=== PATIENT | male | born 1945 | race Caucasian/White ===

== ENCOUNTER → 2017-11-22 15:42 | Outpatient (CLI) | payer MEDICARE, SELFPAY ==
[2015-12-24 10:00] VITALS: BMI 32.3
--- NOTE | 2017-11-22 15:46 | RAD_ITS ---
STUDY: X-RAY CHEST REASON FOR EXAM: Male, 72 years old. Cough. TECHNIQUE: PA and lateral views of the chest. COMPARISON: September 05, 2015 FINDINGS: There is a minimally decreased inspiratory effort when compared to prior study. There is no new infiltrate or mass. Chronic interstitial changes are again noted. There is no demonstrated pleural abnormality. Normal size heart. Normal mediastinum and geraldine. Normal visualized pulmonary arteries. There is mild atherosclerotic calcification of the aortic arch with tortuosity. There are diffuse degenerative changes of the visualized thoracic spine. There is degenerative osteoarthritis of the bilateral shoulders. Again seen are surgical changes on the right shoulder suggesting rotator cuff repair. There is no demonstrated abnormality of the visualized soft tissue structures of the upper abdomen. RAD/Chest PA and Lateral IMPRESSION: 1. No acute cardiopulmonary disease or major interval change. 2. Surgical changes of the right shoulder unchanged from prior study. Electronically Signed: Rajiv Urrutia DO at 18:58 EDT Tel [phone], Service support ,
== END ==
PROVIDERS: Family Provider Internal Medicine; PCP Internal Medicine; Visit Provider Nurse Practitioner Gerontology
DX: R05 Cough (principal)
CPT/HCPCS: 71046

== ENCOUNTER → 2017-12-01 07:27 | Outpatient (CLI) | payer MEDICARE, SELFPAY ==
[2015-12-24 10:00] VITALS: BMI 32.3
--- NOTE | 2017-12-02 08:07 | PFTCOMP ---
COMPLETE PULMONARY FUNCTION TEST INTERPRETATION Brief HPI: Patient is a 72 year old male, currently under the care of myself, who presents to [facility] for complete pulmonary function tests secondary to diagnosis of COPD. Respiratory therapist reports good effort and reproducible results. Interpretation: Forced expiration spirometry shows a very severe large airways obstructive ventilatory defect with an FEV1 of 43% predicted. There is a significant bronchodilator response in FVC and FEV1 by ATS criteria. Spirograms are of good quality and plateau slowly, indicating slowly emptying areas of the lungs. The respiratory flow volume loop shows decreased expiratory flow rates at all lung volumes consistent with airway obstruction. Lung volumes by body plethysmography show an elevated total lung capacity at 7.62 L, 117% predicted. FRC and RV are elevated out of proportion. Lung volume measurements are consistent with hyperinflation and air-trapping. Diffusion capacity by carbon monoxide is decreased at 62% predicted. The airway resistance is elevated. Compared to previous pulmonary function tests from 05/14/2016, there has been a significant worsening in FVC and FEV1. Impression: Partially reversible very severe large airways obstructive ventilatory defect resulting in air trapping with hyperinflation that has worsened since the last study. These findings are consistent with COPD/asthma overlap syndrome.
== END ==
PROVIDERS: Family Provider Internal Medicine; PCP Internal Medicine; Visit Provider Internal Medicine Critical Care Medicine
DX: J44.9 Chronic obstructive pulmonary disease, unspecified (principal); M35.1 Other overlap syndromes; J45.909 Unspecified asthma, uncomplicated
CPT/HCPCS: 94060; 94726; 94729

== ENCOUNTER → 2017-12-09 09:34 | Outpatient (CLI) | payer MEDICARE, SELFPAY ==
[2015-12-24 10:00] VITALS: BMI 32.3
--- NOTE | 2017-12-09 09:34 | DT_ITS ---
This patient was seen during an EMR downtime December 06, 2017 - December 13, 2017. This patient may have a combination of paper and electronic documentation or all paper documentation. All documentation is viewable within the e-chart portion of [facility] for each patient visit.
[2017-12-09 10:15] VITALS: PULSE 87; PULSE 88; PULSE 91; PULSE 94; PULSE 95; PULSE 97; PULSE 99; O2SAT 91; O2SAT 92; O2SAT 95
--- NOTE | 2017-12-13 10:18 | CPS ---
Testing completed by Penelope Raymond RRT.
--- NOTE | 2017-12-13 11:59 | WT_ITS ---
PSN 6 Minute Walk Test - 6 Minute Walk Test 6 Minute Walk Test: 6 Minute Walk Test PSN:6-Minute Walk Test Start: 12/13/17 10: 15 Freq: Status: Active Protocol: RESP.6MINW Document 12/09/17 10:15 JAMIE (Rec: 12/13/17 10:18 JAMIE [id number]) 6 Minute Walk Test Date Performed 12/09/17 Time Performed 09:30 Height 5 ft 9 in Weight: 215 lb Weight in Pounds 215.[address]: Ranjith Rubin Assistive device used: None Pre-test Oxygen Delivery Method Room Air Pulse Ox (%) 95 Pulse Rate (60-100 beats/min) 88 Dyspnea Shawn Scale (0-10) 1 Exertion Shawn Scale (6-20) 7 1st minute Oxygen Delivery Method Room Air Pulse Ox (%) 92 Pulse Rate (60-100 beats/min) 91 2nd minute Oxygen Delivery Method Room Air Pulse Ox (%) 92 Pulse Rate (60-100 beats/min) 95 3rd minute Oxygen Delivery Method Room Air Pulse Ox (%) 91 Pulse Rate (60-100 beats/min) 87 4th minute Oxygen Delivery Method Room Air Pulse Ox (%) 95 Pulse Rate (60-100 beats/min) 97 5th minute Oxygen Delivery Method Room Air Pulse Ox (%) 92 Pulse Rate (60-100 beats/min) 99 6th minute Oxygen Delivery Method Room Air Pulse Ox (%) 92 Pulse Rate (60-100 beats/min) 94 Post-test Oxygen Delivery Method Room Air Pulse Ox (%) 95 Pulse Rate (60-100 beats/min) 87 Dyspnea Shawn Scale (0-10) 3 Exertion Shawn Scale (6-20) 14 Full Laps Walked 17 Partial Lap, Number of Tiles Walked 0 Total Distance Walked (ft) 1003 12/13/17 10:18 Cardiopulmonary Services by Camila Clements Testing completed by Penelope Raymond RRT. Initialized on 12/13/17 10:18 - END OF NOTE - Interpretation Interpretation: The patient ambulated 1003 feet over the course of 6 minutes beginning on room air without assistive devices or breaks. Pretesting oxygen saturation was noted to be 95% on room air. With ambulation, the vanessa oxygen saturation was 91%. This represents a significant exertional oxygen desaturation. - Recommendations Recommendations: There is no indication for the use of supplemental oxygen at this time. However , close interval follow-up is recommended given the degree of oxygen desaturation noted during this study.
== END ==
PROVIDERS: Family Provider Internal Medicine; PCP Internal Medicine; Visit Provider Internal Medicine Critical Care Medicine
DX: G47.33 Obstructive sleep apnea (adult) (pediatric) (principal); J44.9 Chronic obstructive pulmonary disease, unspecified
CPT/HCPCS: 94618

== ENCOUNTER → 2018-10-17 13:57 | Outpatient (CLI) | payer MEDICARE, SELFPAY ==
[2015-12-24 10:00] VITALS: BMI 32.3
[2018-06-07 09:13] VITALS: BMI 32.9
--- NOTE | 2018-10-17 14:06 | RAD_ITS ---
STUDY: X-RAY CHEST REASON FOR EXAM: Male, 73 years old. Shortness of breath TECHNIQUE: PA and lateral views of the chest. COMPARISON: Chest x-ray 11/22/2017 FINDINGS: The lungs are clear and expanded. There is no demonstrated pleural abnormality. Normal size heart. Normal mediastinum and geraldine. Normal visualized pulmonary arteries. Normal visualized aortic arch and descending thoracic aorta. Normal visualized thoracic spine. Normal visualized ribs, clavicles, and shoulders. There has been right rotator cuff repair. There is no demonstrated abnormality of the visualized soft tissue structures of the upper abdomen. RAD/Chest PA and Lateral IMPRESSION: Normal x-ray examination of the chest. Electronically Signed: Cash Cotter, at 14:53 EDT Tel , Service support ,
== END ==
PROVIDERS: Family Provider Internal Medicine; PCP Internal Medicine; Referring Provider Nurse Practitioner; Visit Provider Nurse Practitioner
DX: R06.02 Shortness of breath (principal)
CPT/HCPCS: 71046; 83880

== ENCOUNTER → 2018-10-17 14:50 | Outpatient (CLI) | payer MEDICARE, SELFPAY ==
[2015-12-24 10:00] VITALS: BMI 32.3
[2018-06-07 09:13] VITALS: BMI 32.9
[2018-10-17 15:35] LABS: BNP,B-Type NATRIURETIC PEPTIDE 138.9 pg/mL (0-100)
== END ==
PROVIDERS: Family Provider Internal Medicine; PCP Internal Medicine; Referring Provider Nurse Practitioner; Visit Provider Nurse Practitioner
DX: J44.1 Chronic obstructive pulmonary disease with (acute) exacerbation (principal)
CPT/HCPCS: 83880

== ENCOUNTER → 2018-11-25 07:48 | Outpatient (CLI) | payer MEDICARE, SELFPAY ==
[2015-12-24 10:00] VITALS: BMI 32.3
[2018-06-07 09:13] VITALS: BMI 32.9
--- NOTE | 2018-11-25 12:29 | PFT ---
INTRODUCTION: The patient is a 73-year-old male that presents for pulmonary function studies secondary to a diagnosis of COPD. Respiratory therapy reports good patient effort. Bronchodilators were used during testing. INTERPRETATION: Forced expiration spirometry demonstrates the presence of a severe large airways obstructive ventilatory defect. There was a significant response to aerosolized bronchodilators. Spirograms are of good quality and do not plateau indicating slow emptying of the lungs. Body plethysmography was performed and reveals an elevated RV to 169% of predicted, indicative of underlying air trapping. Diffusing capacity by single breath CO is reduced at 57% of predicted. IMPRESSION: Partially reversible severe large airways obstructive ventilatory defect with associated air trapping and symmetric reduction in diffusing capacity.
== END ==
PROVIDERS: Family Provider Internal Medicine; PCP Internal Medicine; Referring Provider Nurse Practitioner Acute Care; Visit Provider Nurse Practitioner Acute Care
DX: J44.9 Chronic obstructive pulmonary disease, unspecified (principal)
CPT/HCPCS: 94060; 94726; 94729

== ENCOUNTER → 2018-11-30 08:03 | Outpatient (CLI) | payer MEDICARE, SELFPAY ==
[2015-12-24 10:00] VITALS: BMI 32.3
[2018-06-07 09:13] VITALS: BMI 32.9
[2018-11-30 09:37] VITALS: PULSE 69; PULSE 72; PULSE 76; PULSE 79; PULSE 81; PULSE 85; PULSE 92; O2SAT 93; O2SAT 94; O2SAT 95; O2SAT 96
--- NOTE | 2018-11-30 11:20 | PCM.PSN.6M ---
PSN 6 Minute Walk Test - 6 Minute Walk Test 6 Minute Walk Test: 6 Minute Walk Test PSN:6-Minute Walk Test Start: 11/30/18 08:33 Freq: Status: Active Protocol: RESP.6MINW Document 11/30/18 09:37 JAMIE (Rec: 11/30/18 09:39 JAMIE [id number]) 6 Minute Walk Test Date Performed 11/30/18 Time Performed 09:00 Height 5 ft 10 in Weight: 103.419 kg Weight in Pounds 228.[address]: Ranjith Rubin Assistive device used: None Pre-test Oxygen Delivery Method Room Air Pulse Ox (%) 95 Pulse Rate (60-100 beats/min) 69 Dyspnea Shawn Scale (0-10) 0 Exertion Shawn Scale (6-20) 6 1st minute Oxygen Delivery Method Room Air Pulse Ox (%) 95 Pulse Rate (60-100 beats/min) 76 2nd minute Oxygen Delivery Method Room Air Pulse Ox (%) 94 Pulse Rate (60-100 beats/min) 79 3rd minute Oxygen Delivery Method Room Air Pulse Ox (%) 94 Pulse Rate (60-100 beats/min) 81 4th minute Oxygen Delivery Method Room Air Pulse Ox (%) 93 Pulse Rate (60-100 beats/min) 85 5th minute Oxygen Delivery Method Room Air Pulse Ox (%) 93 Pulse Rate (60-100 beats/min) 85 6th minute Oxygen Delivery Method Room Air Pulse Ox (%) 93 Pulse Rate (60-100 beats/min) 92 Dyspnea Shawn Scale (0-10) 3 Exertion Shawn Scale (6-20) 12 Reported Symptoms Dizziness Post-test Oxygen Delivery Method Room Air Pulse Ox (%) 96 Pulse Rate (60-100 beats/min) 72 Full Laps Walked 15 Partial Lap, Number of Tiles Walked 31 Total Distance Walked (ft) 916 - Interpretation Interpretation: The patient was able to ambulate 916 feet over the course of 6 minutes on room air with no assistive devices or breaks. The patient did report lightheadedness at the end of ambulation, but no significant desaturation or tachycardia was noted. These findings are consistent with deconditioning. - Recommendations Recommendations: No supplemental oxygen is indicated at this time.
== END ==
PROVIDERS: Family Provider Internal Medicine; PCP Internal Medicine; Referring Provider Nurse Practitioner Acute Care; Visit Provider Nurse Practitioner Acute Care
DX: J44.9 Chronic obstructive pulmonary disease, unspecified (principal)
CPT/HCPCS: 94618

== ENCOUNTER → 2019-01-03 15:33 | Outpatient (CLI) | payer OTHER, SELFPAY ==
[2015-12-24 10:00] VITALS: BMI 32.3
[2019-01-03 15:33] VITALS: BMI 32.9
--- NOTE | 2019-01-03 15:36 | RAD_ITS ---
STUDY: X-RAY - LEFT SHOULDER REASON FOR EXAM: Male, 73 years old. Pain after a fall TECHNIQUE: 4 view(s) of the shoulder. COMPARISON: None. FINDINGS: Normal glenohumeral articulation. Normal acromioclavicular joint. Normal acromion. Normal humeral head and visualized proximal humerus. The soft tissue structures are unremarkable. Normal visualized pulmonary apex. RAD/Shoulder min 2 Views IMPRESSION: Normal x-ray examination of the shoulder. Electronically Signed: Anup Serna MD at 16:10 EDT , Service support ,
--- NOTE | 2019-01-03 15:36 | RAD_ITS ---
STUDY: X-RAY - LEFT KNEE REASON FOR EXAM: Male, 73 years old. Pain after a fall TECHNIQUE: 4 view(s) of the knee. COMPARISON: None. FINDINGS: Normal visualized distal femur. Normal visualized proximal tibia and fibula. Normal proximal tibiofibular articulation. Normal medial femorotibial compartment. Normal lateral femorotibial compartment. Normal patellofemoral articulation. The soft tissue structures are unremarkable. RAD/Knee 4 or More Views IMPRESSION: Normal x-ray examination of the knee. Electronically Signed: Anup Serna MD at 16:10 EDT , Service support ,
== END ==
PROVIDERS: Family Provider Internal Medicine; Referring Provider Physician Assistant Surgical; Visit Provider Physician Assistant Surgical
DX: S80.02XA Contusion of left knee, initial encounter (principal); S40.012A Contusion of left shoulder, initial encounter
CPT/HCPCS: 73030; 73564

== ENCOUNTER → 2019-02-28 17:34 | Outpatient (CLI) | payer OTHER, SELFPAY ==
[2015-12-24 10:00] VITALS: BMI 32.3
[2019-02-17 15:32] VITALS: BMI 32.9
[2019-02-28 11:11] VITALS: BMI 32.9
--- NOTE | 2019-02-28 17:41 | MRI_ITS ---
STUDY: MRI LEFT SHOULDER REASON FOR EXAM: Male, 73 years old. Left shoulder pain status post fall. TECHNIQUE: Standardized fat and water weighted pulse sequences were obtained in all 3 orthogonal planes. COMPARISON: X-ray 01/03/2019. FINDINGS: Full-thickness supraspinatus tendon tear measures approximately 1.5 cm AP by 2.5 cm transversely. Thickening and signal abnormality in the infraspinatus tendon consistent with tendinosis or low-grade partial tear. Complete tear of the subscapularis tendon, with 1.6 cm tendon gap. Normal teres minor tendon. Normal supraspinatus muscle. Normal infraspinatus muscle. Normal subscapularis muscle. Normal teres minor muscle. Mild glenohumeral joint effusion, with moderate fluid in the subscapularis bursa. Mild fluid in the subdeltoid-subacromial bursa, consistent with rotator cuff tear. Long head of the biceps tendon is torn. Normal labrum. Marrow signal shows no fracture, bone contusion, or osteonecrosis. Moderate fluid in the acromioclavicular joint. There is a Type II morphology (curved), with a neutral orientation. There is no subacromial-subdeltoid bursal fluid. Normal visualized coracohumeral and coracoacromial ligaments. MRI/Upper Ext Joint Only(Routine) IMPRESSION: 1. Full-thickness supraspinatus tendon tear. 2. Complete subscapularis tendon tear. 3. Infraspinatus tendinosis and possible low-grade partial tear. 4. Complete long head biceps tendon tear. 5. Joint and bursal effusions. 6. AC joint effusion. Electronically Signed: Brittny Henson MD at 23:25 EDT Tel , Service support ,
== END ==
PROVIDERS: Family Provider Internal Medicine; PCP Internal Medicine; Referring Provider Physician Assistant; Visit Provider Physician Assistant
DX: S40.012A Contusion of left shoulder, initial encounter (principal); S46.912A Strain of unspecified muscle, fascia and tendon at shoulder and upper arm level, left arm, initial encounter
CPT/HCPCS: 73221

== ENCOUNTER 2019-07-19 05:34 | Day surgery (SDC) | payer OTHER, SELFPAY ==
[2015-12-24 10:00] VITALS: BMI 32.3
--- NOTE | 2019-07-06 02:18 | HP_ITS ---
I have re-examined the patient. There are no clinical changes since date of exam. Intake Intake Visit Reasons: shoulder pain Is patient in pain?: Yes Allergies No Known Allergies Allergy (Verified 06/12/19 08:42) Medications Zolpidem Tartrate [Ambien] 10 mg PO QHS 08/07/13 [History Confirmed 07/06/19] Losartan Potassium [Cozaar] 25 mg PO DAILY 09/05/15 [History Confirmed 07/06/19] apixaban 5 mg tablet 5 mg PO BID 07/28/17 [History Confirmed 07/06/19] cholecalciferol (vitamin D3) 50,000 unit capsule 50,000 unit PO QWEEK 07/28/17 [History Confirmed 07/06/19] ipratropium-albuterol 0.5 mg-3 mg(2.5 mg base)/3 mL nebulization soln 3 ml INHALATION Q4H PRN PRN #180 ml 11/19/17 [Rx Confirmed 07/06/19] albuterol sulfate 90 mcg/actuation aerosol inhaler 2 puff INHALATION Q6H PRN PRN #18 g 12/20/18 [Rx Confirmed 07/06/19] budesonide-formoterol HFA 160 mcg-4.5 mcg/actuation aerosol inhaler 2 puff INHALATION BID #1 ea 12/20/18 [Rx Confirmed 07/06/19] levalbuterol tartrate 45 mcg/actuation aerosol inhaler 2 inh INHALATION Q6H #15 g 12/20/18 [Rx Confirmed 07/06/19] diltiazem HCl 240 mg capsule,extended release 24 hr 240 mg PO DAILY 03/09/19 [History Confirmed 07/06/19] flecainide 100 mg tablet PO #60 tab 03/09/19 [History Confirmed 07/06/19] [facility] Social History (Updated 07/06/19 @ 14:27 by Isabel Bello DO) Smoking Status: Former smoker quit date: 07/05/92 Tobacco: How many years used: 20 alcohol intake: current alcohol intake frequency: holidays/special occasions only substance use type: does not use HPI shoulder pain: Surgical H&P: Yes Details: Parts of this documentation were recorded by a scribe, this documentation accurately reflects the service provided and the decisions made by me, Isabel Bello, DO 07/06/19 [id number]. TAMMI KINNEY is a 74 year old M here today for [facility] F/U on left shoulder. He has most his pain at night. He has tried light duty but was unable to preform this d/t the pain. Patient is having pain over his anterior and posterior shoulder. He has had his MRI and we have the C-9 approval for the surgery of his left shoulder. Denies numbness, tingling or other associated symptoms. Patient has the approval for left shoulder arthroscopic rotator cuff repair and biceps tenodesis. ROS Musc Reports joint pain, Reports joint swelling, Reports limited joint movement, Denies numbness, Reports radiating pain into limb, Reports stiffness, Denies tingling Skin/Breast Denies redness, Denies lesions, Denies itching, Denies rash, Denies skin swelling Neuro No numbness, No tingling Ortho Exam Left Shoulder Testing: Yes Hawkin's, Yes Drop Arm, Yes empty can No rales rhonchi wheezing, no abdominal pain, no audible bruits Assessment & Plan Problems 1. Tear of left supraspinatus tendon M75.100 2. Full thickness tear of left subscapularis tendon S46.812A 3. Tear of distal tendon of biceps S46.219A Plan Reviewed the pre-operative plans with the patient. Risks and benefits of the procedure were fully explained, including but not limited to infection, neurovascular injury, continued pain, arthritis, stiffness, need for further surgery, re-injury, DVT, PE, general risks of anesthesia, and loss of limb or life. The patient understands all the risks and does wish to proceed with written consent. Reviewed post op restrictions and sling use. Will request PT today for post op rehab. 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 Follow up post op or sooner if pain, swelling, numbness or associated symptoms, or concerns develop. All questions answered. Patient in agreement of plan. Coding Level of Care Code Off vis,est,level 4 Diagnoses Tear of left supraspinatus tendon M75.100 ??Laterality: left Full thickness tear of left subscapularis tendon S46.812A Tear of distal tendon of biceps S46.219A 07/06/19 3929 <Electronically signed by Isabel bartlettkatiana DO> Date _ Isabel eBllo DO
[2019-07-06 13:21] VITALS: BMI 33.5
--- NOTE | 2019-07-17 11:21 | EKG12_ITS ---
Test Reason : PREOP Blood Pressure : / mmHG Vent. Rate : 074 BPM Atrial Rate : 074 BPM P-R Int : 302 ms QRS Dur : 116 ms QT Int : 426 ms P-R-T Axes : 082 006 061 degrees QTc Int : 472 ms Sinus rhythm with 1st degree A-V block Otherwise normal ECG Confirmed by PAYAL JJ, SUHAS ([id number]), primer expeditor and drier JEN WITT ([id number]) on 07/18/2019 10:18:07 AM Referred By: Isabel Bello Confirmed By:SUHAS MOE MD
[2019-07-17 12:42] LABS: Hematocrit 43.1 % (40-54); Hemoglobin 14.2 g/dL (13.0-16.5); Mean Corp Hgb Conc 32.9 g/dL (32-36); Mean Corpuscular Hgb 30.9 pg (27.0-32.0); Mean Corpuscular Volume 93.7 fL (80-94); Mean Platelet Vol. 9.3 fl (6.2-12.0); Platelet Count 283 K/mm3 (150-450); RBC Distribution Width CV 13.4 % (11.6-14.6); RBC Distribution Width SD 45.8 fl (35.1-43.9); White Blood Count 8.7 K/mm3 (4.4-11.0)
[2019-07-17 13:05] LABS: Anion Gap 3 (5-15); BUN 14 mg/dL (7-18); BUN/Creat Ratio 14.9 RATIO (10-20); Chloride 105 mmol/L (98-107); Creatinine, Serum 0.94 mg/dL (0.70-1.30); EST Glomerular Filtration Rate 83 mL/min (>60); Est Glom Filt Rate - Afr Amer 101 mL/min (>60); Glucose 65 mg/dL (74-106); Potassium 3.7 mmol/L (3.5-5.1); Sodium Level 139 mmol/L (136-145)
[2019-07-19] VITALS (7 sets, daily range): BP systolic 109–151; BP diastolic 66–89; PULSE 61–94; RESP 14–18; TEMP 36.5–37; O2SAT 92–97; BMI 32.3
[2019-07-19] MEDS: Lactated Ringers 1,000 ML 100 ML IV (06:06)
[2019-07-19] MEDS: Epinephrine (1 mg/ml) 1 MG/ML VIAL (06:53)
[2019-07-19] MEDS: Cefazolin 2 GM in 0.9% Normal Saline 100 ML IV (07:26)
--- NOTE | 2019-07-19 07:42 | PCM.DC.ORTHO ---
Discharge Diet: No Restrictions - remove dressings in 5 days and apply bandaids to incision sites, sling at all times, call with concerns, follow up in 10-14 days, may move elbow and hand/wrist but DO NOT MOVE SHOULDER- sling at all times unless showering Discharge Activity: May Not Drive May shower in (days): 1 Ice area for (Minutes): 20 - Every hour while awake. Weight Bearing Status: Weight bearing as tolerated Keep extremity elevated above heart level: Operative Extremity Call your doctor if your incision/area has: Continuous Slow Oozing, Sudden Increased Bleeding, Increased Pain/ Swelling, Increased Redness, Foul Smelling Discharge Call your doctor if you observe: Fever of 101 or Higher, Coldness, Increased Pain, Numbness or Tingling, Change in Color, Calf discomfort Allergies/Adverse Reactions: Allergies No Known Allergies Allergy (Verified 07/19/19 05:53) Medications to take at Discharge Losartan Potassium [Cozaar] 25 mg PO DAILY 09/05/15 apixaban 5 mg tablet 5 mg PO BID 07/28/17 cholecalciferol (vitamin D3) 1,250 mcg (50,000 unit) capsule 50,000 unit PO QWEEK 07/28/17 ipratropium 0.5 mg-albuterol 3 mg (2.5 mg base)/3 mL nebulization soln 3 ml INHALATION Q4H PRN PRN #180 ml 11/19/17 albuterol sulfate 90 mcg/actuation aerosol inhaler 2 puff INHALATION Q6H PRN PRN #18 g 12/20/18 budesonide-formoterol HFA 160 mcg-4.5 mcg/actuation aerosol inhaler 2 puff INHALATION BID #1 ea 12/20/18 flecainide 100 mg tablet 100 mg PO DAILY #60 tab 03/09/19 Diltiazem HCl [Cartia Xt] 240 mg PO DAILY 07/14/19 Duloxetine Hcl [Cymbalta] 60 mg PO DAILY 07/14/19 Levalbuterol Tartrate [Levalbuterol Tartrate Hfa] 2 inh INHALATION Q6H PRN 07/14/19 Rosuvastatin Calcium [Crestor] 20 mg PO QHS 07/14/19 Oxycodone HCl/Acetaminophen [Percocet 5/325] 1 - 2 tab PO Q6H PRN PRN 5 Days #28 tab 01/15/20 Zolpidem Tartrate [Ambien (Generic)] 5 mg PO QHS PRN PRN #14 tab 07/19/19 The following prescriptions were given: Zolpidem Tartrate [Ambien (Generic)] 5 mg PO QHS PRN PRN #14 tab PRN Reason: Insomnia Transmission Status: Received by [facility] Oxycodone HCl/Acetaminophen [Percocet 5/325] 1 - 2 tab PO Q6H PRN PRN 5 Days #28 tab PRN Reason: Pain Transmission Status: Received by [facility] Orders to be completed after discharge: 12 Lead EKG [[facility]] Time Frame: 07/14/19, Facility: [facility], Location: Cardiovascular Services Primary Care Physician: Ana Barrera DO [Primary Care Provider] - Test Results: Test results from this visit will be discussed in further detail at your follow-up appointment, if applicable. Please Follow Up With: Isabel Bello DO - [phone]
--- NOTE | 2019-07-19 07:43 | OP.PCM_ITS ---
Report of Operation Date of Procedure: 07/19/19 Pre-Operative Diagnosis: left shoulder rotator cuff tear, impingment syndrome, biceps tendon tear Post-Operative Diagnosis: same Surgery/Procedure Performed:: sals, massive rotator cuff repair, subacromial decompression/acromioplasty catering attendant: Marv Mays Type of Anesthesia:: General Anesthesiologist: Noe Jefferson Estimated Blood Loss (mL): min Fluids Replaced: 1000ml lr Description of Procedure: Preop note Patient is a 74-year-old male with left shoulder injury at work. Patient failed conservative treatment MRI confirms rotator cuff tear biceps tear and impingement syndrome. Risk benefits and alternatives surgery discussed with patient. Risk including but not limited to blood loss, blood clot, infection, neurovascular, failure procedure, loss of life and loss of limb. Patient is aware would like proceed with left shoulder arthroscopy repair as indicated. Operative note Patient seen and examined preop appointment. Left shoulder was marked. Patient brought to the operating room placed supine on the operating table. Signed, anesthesia, antibiotics were administered. Left arm was prepped and draped in usual sterile fashion after beachchair positioning was initiated. Please note the long-term through beachchair position we did recheck his blood pressure which was stable throughout. All bony prominences were well-padded SCDs placed on his bilateral lower extremities. We then marked out our in the left arm and then prepped and draped we marked out our incisions for our portal placement. We insufflated the joint from the posterior aspect had good return. Timeout was performed. We use an 11 blade to create a posterior portal. Began our diagnostic arthroscopy. He had grade 3 change of his humeral head is glenoid socket and cartilage is intact. His biceps tendon was torn off of its insertion on the labrum and there was some fraying we then created an anterior portal under direct visualization. We then resected back the area of the biceps and that had torn off. As it was is there is still a stump remaining and some irritation surrounding. Noted that there was a massive rotator cuff tear and was retracted posteriorly and supraspinatus and infraspinatus just medial to its insertion on the its footprint. We then created a into the subacromial space and created a lateral portal under direct visualization. There was extensive bursitis throughout which was resected with a combination of his shaver and an ablator. We then were able to mobilize the rotator cuff back to its footprint. We placed a traction stitch initially we did use an elevator to resect back any adhesions. We had been good mobility the tear moved from a posterior to anterior we then placed two 5.5 bio composite Arthrex anchors into the medial footprint after creating a bed for the anchors use a combination of an ablator and a bur. We then sequentially placed our sutures from posterior to anterior after placing all of her sutures we had noted good coverage at that point. We then placed to lateral row as due to patient's age and tissue strength we will give him his best chance for decreasing the tension through the 10 suture itself. To the tendon. Then created a lateral row using 2 swivel locks. I then irrigated the shoulder with copious nonsterile saline. Portals were closed with interrupted 4-0 nylon stitches sterile dressings were applied and a sling was applied to left upper extremity extremity. Patient taught procedure well no complication transferred recovery room in stable condition Postoperative note Pharmacy has prescription Call increased pain numbness tingling or issues arise We will give pictures to family in 2 weeks May remove dressings in 4 days and apply Band-Aids and get incision wet at that time This note was generated with [employer] dictation software. It may contain incorrect words, spelling, and punctuation that were not noted in checking the note before signing.
[2019-07-19] MEDS: Bupiv/Epi 0.25% 30 ML Vial (10:00)
[2019-07-19] MEDS: Mupirocin Ointment 22gm Tube 1 APPLIC (10:11)
[2019-07-19] MEDS: HYDROcodone Bitartrate/Apap 5/325 Tablet PO (11:32)
== END 2019-07-19 13:36 | disposition home or self-care (01) ==
LOC: SDC 05:36 → AC 05:37
PROVIDERS: Anesthesiology; Family Provider Internal Medicine; PCP Internal Medicine; Referring Provider Orthopaedic Surgery; Visit Provider Orthopaedic Surgery
PROC: (CPT 29827; principal; 2019-07-19 07:10)
DX: M75.102 Unspecified rotator cuff tear or rupture of left shoulder, not specified as traumatic (principal); S46.812A Strain of other muscles, fascia and tendons at shoulder and upper arm level, left arm, initial encounter; S46.219A Strain of muscle, fascia and tendon of other parts of biceps, unspecified arm, initial encounter; X58.XXXA Exposure to other specified factors, initial encounter; Y93.9 Activity, unspecified; Y92.89 Other specified places as the place of occurrence of the external cause; Y99.0 Civilian activity done for income or pay; I10 Essential (primary) hypertension; I48.91 Unspecified atrial fibrillation; J44.9 Chronic obstructive pulmonary disease, unspecified; E78.00 Pure hypercholesterolemia, unspecified; F32.9 Major depressive disorder, single episode, unspecified; Z79.01 Long term (current) use of anticoagulants; Z87.891 Personal history of nicotine dependence; Z86.711 Personal history of pulmonary embolism
CPT/HCPCS: 01630; 29826; 29827; 36415; 80048; 85027; 93005; J7120; C1713; J2405

== ENCOUNTER → 2019-11-17 06:35 | Outpatient (CLI) | payer MEDICARE, SELFPAY ==
[2015-12-24 10:00] VITALS: BMI 32.3
[2019-06-12 07:48] VITALS: BMI 33.5
[2019-10-06 08:52] VITALS: BMI 32.3
--- NOTE | 2019-11-17 13:15 | PFTCOMP ---
COMPLETE PULMONARY FUNCTION TEST INTERPRETATION Brief HPI: Patient is a 74 year old male, currently under the care of myself, who presents to [facility] for complete pulmonary function tests secondary to diagnosis of COPD. Respiratory therapist reports good effort and reproducible results. Interpretation: Forced expiration spirometry shows a moderately severe large airways obstructive ventilatory defect with an FEV1 of 50% predicted. There is a significant bronchodilator response in FVC and FEV1 by strict ATS criteria. Spirograms are of good quality and plateau slowly, indicating slowly emptying areas of the lungs. The respiratory flow volume loop shows decreased expiratory flow rates at all lung volumes consistent with airway obstruction. Lung volumes by body plethysmography show an elevated total lung capacity at 7.48 L, 116% predicted. FRC and RV are elevated out of proportion. Lung volume measurements are consistent with hyperinflation and air-trapping. Diffusion capacity by carbon monoxide is decreased at 68% predicted. The airway resistance is elevated. Compared to previous pulmonary function tests from 11/25/2018, there is been a significant improvement in DLCO by 14%. Impression: Partially reversible moderately severe large airways obstructive ventilatory defect with a symmetric reduction diffusing capacity, but some improvement compared to previous testing.
== END ==
PROVIDERS: Family Provider Internal Medicine; PCP Internal Medicine; Referring Provider Nurse Practitioner Acute Care; Visit Provider Nurse Practitioner Acute Care
DX: J44.9 Chronic obstructive pulmonary disease, unspecified (principal); Z98.890 Other specified postprocedural states
CPT/HCPCS: 94060; 94726; 94729; 97110

== ENCOUNTER 2020-01-19 12:00 | Outpatient (RCR) | payer OTHER, MEDICARE, SELFPAY ==
[2015-12-24 10:00] VITALS: BMI 32.3
[2019-08-03 10:43] VITALS: BMI 32.3
--- NOTE | 2019-08-18 13:59 | HP.PTEVAL_ITS ---
Patient's Visit Information TAMMI KINNEY is a 74 year old M referred to Physical Therapy by Dr. Isabel Bello DO with a diagnosis of S/P RIGHT SHOULDER RTC. Date of Evaluation: 08/17/19 Physical Therapist: Bry Alvarez PT, Cert MDT, OCS - Visit Plan Frequency: 3x /Week Duration: 6 Weeks Plan: S/P RTC REPAIR MASSIVE REPAIR ON 07/19/19 S/P 5WKS ON 08/23/09. SEE GUIDELINES FOR RIGHT RTC REPAIR FOR PROGRESSION. PT INTERVENTION PROM INTIALLY PER ORDER ,PROGRESS WITH PHASES PER GUIDELINES. MANUAL THERAPY,CP ,ESTIM - Subjective Findings: This 74 y/o male presenst to physicl therapy with S/P Right RTC repair ON 07/19/19 with ultrasling done by Moises at [facility] . Patient right shoulder at work fell tripped on gas hose landed on right shoulder. [facility] went to [facility] had [facility] -. Patient went to work light duty still had alot pain. [facility] ,patient then had MRI showed full thickness ter supraspinatous tendon,complete tear subscapularis,complete long head biceps tendon tear.Patient denies parathesia/tingling. Patient symptoms affects sleeping. Patient surgery affects ADL'S,self hygine and function. Patient symptoms affects QOL. Patient unbale to RTW. Patient RTD 08/31. SOCIAL: . 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 PALAPTION: tender global. NEURO: intact. PROM: supine shoulder flexion 70 degress ,abduction 60 degrees ,ER 10- pain muscle guarding ,IR able to touch abdominals,elbow- wrist WFL. CAPSULAR RESTRICTION: mod tight - Goals Goal 1:: Independant with HEP progression with guidelines. Goal Time Frame: 12-16 Weeks Goal 2:: Decrease shoulder pain by 75% or > to improve function. Goal Time Frame: 12-16 Weeks Goal 3:: Patient increase PROM shoulder flexion 145 degrees ,abdunction in scapation,ER 80 degrees,IR behind back L1 to improve function Goal Time Frame: 6-8 Weeks Goal 4:: Patient increase AROM shoulder flexion 140 degrees,abd 135 in scapation ER 80 degrees to improve function with ADL's and housework tasks [place] Goal Time Frame: 12-16 Weeks Goal 5:: Patient increase strength RTC 4-/5 and deltouid 3+/5 to improve function with ADLS' and houseworks tasks Goal Time Frame: 12-16 Weeks Goal 6:: Patient to improve quick shoulder dash by 10-15 ponts or > to improve QOL. Goal Time Frame: 12-16 Weeks - Rehabilitation Potential Physical Therapy Diagnosis: Patient has right shoulder RTC repair on 07/19/19 due to massive tear with poor ROM,pain,decrease strength impairs ADL's,self hygine and function thus benifit froms Skilled PT Rehabilitation Potential: Good - Anticipated Interventions Patient/Client Instruction: Educate patient on: Condition, Plan of Care For the Purpose of:: To decrease pain, To increase ROM, To improve muscle performance and motor function, To improve ability to perform ADL's, To increase tolerance to activity/condition/position, To improve performance and independence with ADL's, To improve ability of physical actions for home/community/work/leisure, To improve health of tissue, To decrease soft tissue restriction, To increase flexibility/ROM, To assume or resume ADL's, To improve ability to perform tasks related to life management, To improve tolerance to ADL's Therapeutic Exercise to Include: Strength training, Postural training, Flexibilty training, Passive ROM, Active ROM Comment: RTC/SCAPULAR ,. INTAILLY PROM ,PROGRESS PER GUIDELINES For the Purpose of:: To decrease pain, To increase ROM, To improve muscle performance and motor function, To improve ability to perform ADL's, To increase tolerance to activity/condition/position, To improve performance and independence with ADL's, To improve ability of physical actions for home/community/work/leisure, To improve health of tissue, To decrease soft tissue restriction, To increase flexibility/ROM Manual Therapy Techniques to Include: Mobilization, Passive ROM Comment: Peter OSSILATIONS,GR1-3 For the Purpose of:: To increase ROM, To improve nutrient delivery to tissue, To increase oxygenation perfusion, To improve health of tissue, To decrease soft tissue restriction, To increase flexibility/ROM TENS: Yes IF ES: Yes Other electric stimulation: Yes Cryotherapy (ice pack, ice massage): Yes Thermo therapy (hot pack): Yes For the Purpose of:: To decrease pain, To increase ROM, To improve health of tissue, To decrease soft tissue restriction Thank you for the opportunity to evaluate your patient. For Medicare and Medicare HMO plans, please review the plan of care and approve it. It will need to be FAXED BACK to us at [phone] for Medicare purposes. For Medicare only, by signing this I certify the plan of care. Please let me know if there are questions or concerns regarding this plan of care. Physician Signature: Date:
--- NOTE | 2019-12-19 13:58 | HP.PTREVAL ---
Dr. Isabel Bello, DO, It has been my pleasure to treat TAMMI KINNEY over the last 30 visits for S/P Left SHOULDER RTC. Please see the progress note below for an update on the physical therapy plan of care! Subjective: Patient seen DR shona chopra recommended PT . Sleeping good. Denies parathesia/tingling. Pain with certain motion to side and back increase 2-/3 10 worse. Objective/Function: POSTURE: mild foward posture. AROM: shoulder flexion 140 degrees,140 abduction ER 90 degrees. PROM: shoulder flexion 160 degrees,abduction 160. MMT: infraspinatous 4-/5,subscapularis 4/5,supraspiantous 4-/5 pain,deltoid 4-/5 anterior,lateral 3+/5 ,poor scapular strength Plan Plan: CONT WITH POC 2-3X FOR 4-6WEEKS -12 VISITS. Provide Phase III next session. S/P RTC REPAIR MASSIVE REPAIR ON 07/19/19. PT INTERVENTION PROM, PROGRESS SLOWLY PER GUIDELINES STRENGTHENING RTC/POSTURAL EX'S,CP ,ESTIM Goals Goal 1:: Independant with HEP progression with guidelines. Goal Time Frame: 12-16 Weeks Goal 2:: Decrease shoulder pain by 75% or > to improve function. Goal Time Frame: 12-16 Weeks Goal 3:: Patient increase PROM shoulder flexion 145 degrees ,abdunction in scapation,ER 80 degrees,IR behind back L1 to improve function Goal Time Frame: 6-8 Weeks Goal 4:: Patient increase AROM shoulder flexion 140 degrees,abd 135 in scapation ER 80 degrees to improve function with ADL's and housework tasks [place] Goal Time Frame: 12-16 Weeks Goal 5:: Patient increase strength RTC 4-/5 and deltouid 3+/5 to improve function with ADLS' and houseworks tasks Goal Time Frame: 12-16 Weeks Goal 6:: Patient to improve quick shoulder dash by 10-15 ponts or > to improve QOL. Goal Time Frame: 12-16 Weeks Anticipated Interventions Patient/Client Instruction: Educate patient on: Condition, Plan of Care For the Purpose of:: To decrease pain, To increase ROM, To improve muscle performance and motor function, To improve ability to perform ADL's, To increase tolerance to activity/condition/position, To improve performance and independence with ADL's, To improve ability of physical actions for home/community/work/leisure, To improve health of tissue, To decrease soft tissue restriction, To increase flexibility/ROM, To assume or resume ADL's, To improve ability to perform tasks related to life management, To improve tolerance to ADL's Therapeutic Exercise to Include: Strength training, Postural training, Flexibilty training, Passive ROM, Active ROM Comment: RTC/SCAPULAR ,. INTAILLY PROM ,PROGRESS PER GUIDELINES For the Purpose of:: To decrease pain, To increase ROM, To improve muscle performance and motor function, To improve ability to perform ADL's, To increase tolerance to activity/condition/position, To improve performance and independence with ADL's, To improve ability of physical actions for home/community/work/leisure, To improve health of tissue, To decrease soft tissue restriction, To increase flexibility/ROM Manual Therapy Techniques to Include: Mobilization, Passive ROM Comment: Peter OSSILATIONS,GR1-3 For the Purpose of:: To increase ROM, To improve nutrient delivery to tissue, To increase oxygenation perfusion, To improve health of tissue, To decrease soft tissue restriction, To increase flexibility/ROM TENS: Yes IF ES: Yes Other electric stimulation: Yes Cryotherapy (ice pack, ice massage): Yes Thermo therapy (hot pack): Yes For the Purpose of:: To decrease pain, To increase ROM, To improve health of tissue, To decrease soft tissue restriction Please do not hesitate to contact me at [phone] by phone or if you have questions or concerns regarding this new plan of care! Sincerely, Bry Alvarez, PT, Cert MDT, OCS
== END 2020-01-19 17:00 | disposition home or self-care (01) ==
LOC: PT 12:00
PROVIDERS: PCP Internal Medicine; Referring Provider Orthopaedic Surgery; Visit Provider Orthopaedic Surgery
DX: Z98.890 Other specified postprocedural states (principal)
CPT/HCPCS: 97014; 97035; 97110; 97140; 97162; 97530; G0283

== ENCOUNTER 2020-03-29 08:50 | Outpatient (RCR) | payer OTHER, SELFPAY ==
[2015-12-24 10:00] VITALS: BMI 32.3
[2020-02-29 08:17] VITALS: BMI 32.7
[2020-03-20 13:53] VITALS: BMI 32.7
--- NOTE | 2020-04-04 08:09 | HP.OTFCE_ITS ---
Floor (Occasional 1-33% of Day): 35# Floor (Frequent 34-66% of Day): 18# Floor (Constant 67-100% of Day): 7# Floor PDL: Light-Medium Knee (Occasional 1-33% of Day): 35# Knee (Frequent 34-66% of Day): 18# Knee (Constant 67-100% of Day): 7# Knee PDL: Light-Medium Waist (Occasional 1-33% of Day): 30# Waist (Frequent 34-66% of Day): 15# Waist (Constant 67-100% of Day): NA Waist PDL: Light-Medium Shoulder (Occasional 1-33% of Day): 15# Shoulder (Frequent 34-66% of Day): 8# Shoulder (Constant 67-100% of Day): NA Shoulder PDL: Sedentary-Light Overhead (Occasional 1-33% of Day): NA Overhead (Frequent 34-66% of Day): NA Overhead (Constant 67-100% of Day): NA Overhead PDL: No Ability Bending: Occasional Ability (1-33% of day) Comments: with use of external support for balance Squatting: Occasional Ability (1-33% of day) Comments: with use of external support for balance Kneeling: Occasional Ability (1-33% of day) Comments: low occasional ability Reaching out: Occasional Ability (1-33% of day) Reaching up: Occasional Ability (1-33% of day) Sitting: Frequent Ability (34-66% of day) Walking: Occasional Ability (1-33% of day) Standing: Occasional Ability (1-33% of day) Duration Sedentary Sedentary Light Light Light Medium Medium Medium Heavy Very Heavy Heavy Occasional (0-33% of day) Frequent (34-66% of day) Constant (67-100% of day) 10 # Negligible Negligible 15 # 8 # Negligible 20 # 10# Negli. 35 # 18 # 7 # 50 # 25 # 10 # 75 # 100 # >100 # 38 # 50 # >50 # 15 # 20 # >20 # Height: 1.78 m Weight:: 100.244 kg Hand Dominance: Right Medical History Including Restrictions: pt states he was in good health until he had a fall while at work. 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 After the fall he went to the Dr. 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 [facility] assessment, pt request the MRI and a large tear from MRI. pt states this was about 4 months after his fall. Pt had sx then had therapy and pt states he recovered about 80%- 70% and returned to work but was unable to continue his job and currently pt is off work. Pt states he has concerns with how his left shoulder is feeling as he previous right shoulder rotator cuff repair he had made what he felt was a full recovery. pt went back to work and has had an increase in pain. pt states pain is controlled by over the counter. Diagnoses: COPD dx 69 years old controlled with medication. emphysema dx at age 69 controlled with medication and breathing tx. A fib dx at age 62 controlled with medication. Fibromyalgia dx at age 62. left rotator cuff tear with repair. right rotator cuff tear with repair 15 years ago. hx of PE 9 years ago Symptoms: left shoulder pain. tingling down left arm Pain: pt states left shoulder pain throbbing at a - 6/10 without over the counter pain medication. pt states he does use ice at night to decrease pain. Resting heart rate 68 Work History: Pt works for [employer] states he has been working there for 3 years. 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 Pt states he was injured at work and when he returned, he was placed in an assembling bottles position. pt states he returned to work to work 4 days after this year. 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 pt states he is having to carry the boxes. pt states he works 8 hours a day. pt states with the job requirements he is struggling with pain in about an hour and a half into this job. pt states he does not have a job description with him. States he has no lift requirement that he is aware of. pt states he was working 40hours a week and could not perform his job due to pain. pt states pain limits him with work tasks. 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 Behavioral: Pt was cooperative during the assessment. ADLS: Pt lives in a ranch home one entry step, no rails to enter home- pt does have basement but does not go to basement- Pt states he has a [id number] pt states he stands for shower- pt states he has a long handled brush- pt is MOD I with bathing, IND with dressing, pt states he drives ind to this session. does cook, cleaning, laundry. pt states he does most tasks right-handed pt states he uses his left UE about 80% of the time. yard work pt hired this out for last 6 years. Physical Examination: pt becomes SOB with increase activity ROM: pt has had a ring and MF finger tip amputation about 25 years ago. left shoulder flex 135 ext 50. left shoulder abduction 120 Strength: pt demo with left UE shoulder MMT at 3-/5 pain. 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 Sensation: Harper-bharti monofilament sensory testing. right all digits 3.84 interpretation diminished protective sensation. left digits 3.84 interpretation diminished protective sensation Fine Motor: 9 hole peg test. right 27.6 = 25% better than males in his age group. left 27.89 = 50% better than males in his age group Balance: One noted LOB but pt caught self with table top. Then used table top for support with bending. Bending: pt demo the ability to bend forward three times, ten times pt did get d alyssa and have a slight LOB forward but used external support to catch himself and ten times rapidly with external support. heart rate 82 pain in left shoulder 4/10. pt can bend forward on an occasional ability Squatting: pt demo the ability to squat three times, ten times pt demo SOB after needed 3 min to catch breath. SP02 dropped to 89 and then returned to 96. Pt can squat on an occasional ability. Kneeling: Pt demo the ability to kneel three times, and 4 times. pt demo SOB SpO2 dropped to 89 and heart rate at 91. pt can kneel on a low occasional ability Reaching out/up: pt demo the ability to reach up in a functional ROM three times, 8 times - pt stopped due to pain. report pain increase from 4-6/10 with this task. Pts SpO2 dropped to 86 and recovered to 97. Heart rate at 75. pt can reach out on an occasional ability. Walking: pt ambulated 6 min SpO2 dropped from 99 to 89 with ambulating an antalgic gait pattern pt SOB. Pt can ambulate on an occasional ability. Standing: pt demo the ability to stand for 4 min with shifting body weight and lifting legs. pt can stand on an occasional ability. Sitting: pt demo the ability to sit for 45 min with moving left UE around. pt can sit on a frequent ability. Climbing Stairs: pt demo the ability to ascend and descend 10 steps with use of handrail on right with good ability. Floor Lift: pt lifted 35# maximally from floor level with good lifting mechanics. Knee Lift: pt lifted 35# maximally from this level with good lifting mechanics. Waist Lift: pt lifted 30# maximally from this level with good lifting mechanics. Shoulder Lift: pt lifted 55# maximally from this level with good lifting mechanics. Overhead Lift: unable Carrying: pt demo the ability to carry 20# for 40 feet.
--- NOTE | 2020-04-08 14:29 | HP.OT.NRP ---
TAMMI KINNEY was seen in my office for initial evaluation on . The following Plan of Care was established for this patient: pt was seen for FCE only This patient was last seen in our office . Pertinent comments regarding their Occupational therapy will appear below: At this point I will be discontinuing this patient from occupational therapy. I would be happy to see this patient again in the future if found appropriate by the physician. Thank you! Aye Fermin, OTR/L, CHT
== END 2020-03-29 17:00 | disposition home or self-care (01) ==
LOC: OT 08:50
PROVIDERS: PCP Internal Medicine; Referring Provider Orthopaedic Surgery; Visit Provider Orthopaedic Surgery
DX: S46.012D Strain of muscle(s) and tendon(s) of the rotator cuff of left shoulder, subsequent encounter (principal); S46.112D Strain of muscle, fascia and tendon of long head of biceps, left arm, subsequent encounter
CPT/HCPCS: 97750

== ENCOUNTER 2021-01-13 17:06 | Emergency (ER) | payer MEDICARE, SELFPAY ==
[2015-12-24 10:00] VITALS: BMI 32.3
[2020-12-16 06:28] VITALS: BMI 32.7
[2021-01-13 17:07] VITALS: BP 140/77; PULSE 72; RESP 16; TEMP 36.6; O2SAT 96; BMI 34.2
--- NOTE | 2021-01-13 17:41 | EDS_ITS ---
HPI History of Present Illness HPI Narrative: Patient presents with left knee injury that occurred today. Patient states he stepped off of a curb. Patient states he felt a pop in his left knee. Patient states he was having difficulty ambulating after the injury. Patient describes his pain as aching but sharp at times. Patient states it is worse with certain movements. Patient denies any paresthesias. Patient admits to some swelling over the left knee. Patient states the pain radiates to his left thigh. Patient denies any head injury or loss of consciousness. Patient denies any other injuries. Chief Complaint: Lower Extremity Injury Informant: patient Onset/Context/Timing Onset: Today Context: Sudden Onset Timing: Continuous Quality of Pain: Sharp and Aching Location: Left knee Worsened by: Movement Relieved by: Nothing Associated Symptoms Associated Symptoms: Negative for Parasthesia [facility] Medical History (Updated 01/13/21 @ 18:[address] Noe Clarke, DO) Asbestos exposure COPD DDD (degenerative disc disease) Fibromyalgia Hiatal hernia History of tobacco abuse Hyperglycemia Hypertension Insomnia Obesity ASTON (obstructive sleep apnea) Osteoarthritis Paroxysmal atrial fibrillation Pulmonary embolism Restless leg syndrome Stage 3 severe COPD by GOLD classification Ventral hernia Home Medications losartan 25 mg PO DAILY 09/05/15 [History Last Taken Unknown] cholecalciferol (vitamin D3) 1,250 mcg (50,000 unit) capsule 50,000 unit PO QWEEK 07/28/17 [History Last Taken Unknown] flecainide 100 mg tablet 100 mg PO DAILY #60 tab 03/09/19 [History Last Taken 07/19/19 05:00] levalbuterol tartrate 2 inh INHALATION Q6H PRN 07/14/19 [History Last Taken Unknown] rosuvastatin 20 mg PO QHS 07/14/19 [History Last Taken Unknown] apixaban 5 mg tablet 5 mg PO BID 02/29/20 [History Last Taken Unknown] oxygen-air delivery systems #1 02/29/20 [History Last Taken Unknown] albuterol sulfate 90 mcg/actuation aerosol inhaler 2 puff INHALATION Q6H PRN PRN #18 g 06/03/20 [Rx Last Taken Unknown] ipratropium 0.5 mg-albuterol 3 mg (2.5 mg base)/3 mL nebulization soln 3 ml INHA LATION Q4H PRN PRN #180 ml 06/03/20 [Rx Last Taken Unknown] budesonide-formoterol HFA 160 mcg-4.5 mcg/actuation aerosol inhaler 2 puff INHALATION BID #3 ea 09/06/20 [Rx Last Taken Unknown] tiotropium bromide 2.5 mcg/actuation mist for inhalation 2 puff INHALATION QDAY #3 ea 09/06/20 [Rx Last Taken Unknown] tiotropium 2.5 mcg-olodaterol 2.5 mcg/actuation mist for inhalation 2 puff INHALATION DAILY 12/16/20 [History Last Taken Unknown] hydrocodone-acetaminophen 1 tab PO Q6H PRN PRN 3 Days #10 tablet 01/13/21 [Rx Last Taken Unknown] Allergy/AdvReac Type Severity Reaction Status Date / Time No Known Allergies Allergy Verified 01/13/21 17:10 Family History Father Heart disease Sister Heart disease Brother Heart disease Uncle Prostate cancer Surgical History Amputation finger H/O shoulder surgery Hx of cardiac cath Social History Smoking Status: Former smoker quit date: 07/05/92 Tobacco: How many years used: 20 alcohol intake: current alcohol intake frequency: holidays/special occasions only substance use type: does not use ROS ROS ED Constitutional Constitutional ED: Denies chills or fever(s) Eyes Eyes: Denies blurry vision or change in vision ENT ENT ED: Denies rhinorrhea or sore throat Cardiovascular Cardiovascular: Denies chest pain or palpitations Respiratory/Chest Respiratory/Chest: Denies cough or dyspnea Gastrointestinal Gastrointestinal: Denies nausea or vomiting Genitourinary Genitourinary ED: Denies dysuria or hematuria Musculoskeletal Musculoskeletal: Denies back pain or neck pain Integumentary Denies abscess or rash Neurologic Neurologic: Denies headache(s) or weakness Allergic/Immunologic Allergic/Immunologic ED: Denies mouth swelling or urticaria EXAM Physical Exam Const Vital Signs: 01/13/21 17:07 Temperature 97.8 F Temperature Source Temporal Pulse Rate 72 Respiratory Rate 16 Blood Pressure 140/77 H Blood Pressure Mean 98 Pulse Ox 96 Oxygen Delivery Method Room Air Positive well nourished and well developed General Appearance ED: well developed HEENT Reports moist mucous membranes Neck full ROM Extremity Extremity Narrative: There is tenderness over the anterior aspect of the left knee. There is mild effusion. There is no deformity noted. There is some ecchymosis noted. Range of motion was limited in all motions of the left knee. Patient was unable to extend his left knee against gravity. Sensation was intact to light touch bilaterally in the lower extremities. Pedal pulses are equal bilaterally. Neuro oriented x3, CN's II-XII intact bilaterally and no sensory deficits noted Sensorium / Orientation: alert Psych mental status grossly normal MDM MDM MDM Narrative Medical decision making narrative: X-rays of the left knee were obtained. There are 4 views. On my interpretation, there is no acute fracture. There is some mild soft tissue swelling. There is no dislocation. Radiologist also interpreted the x-rays and agrees. Patient was advised that this is most likely a rupture of his patellar tendon. Patient was advised that this will likely need surgery as an outpatient. Patient was given a knee immobilizer. Patient was instructed to ice and elevate the left knee. Patient was given crutches. Patient was instructed to follow-up with Dr. Trujillo in 3 to 5 days. Patient was given a prescription for a short course of [place]. Patient understood and was agreeable with the plan. All questions were answered. Radiography Diagnostic Testing: Radiology Impression Knee X-Ray 01/13/21 17:50 IMPRESSION: Normal x-ray examination of the knee. Electronically Signed: Sergio Erazo MD at 18:20 EDT Tel , Service support , Discharge Plan Triage Chief Complaint: Lower Extremity Injury ED Provider: Noe Clarke Dx/Rx/DC Orders Clinical Impression: Rupture of left patellar tendon Instructions: ED Knee Sprain Prescriptions: New hydrocodone-acetaminophen [hydrocodone-acetaminophen] 1 TABLET tablet 1 tab PO Q6H PRN PRN (Reason: Pain) 3 Days Qty: 10 RF: 0 No Action cholecalciferol (vitamin D3) 50,000 unit capsule 50,000 unit PO QWEEK RF: 0 flecainide 100 mg tablet 100 mg PO DAILY Qty: 60 RF: 0 apixaban 5 mg tablet 5 mg PO BID RF: 0 (DME) oxygen-air delivery systems device See Rx Instructions .ROUTE .MEDSUPPLY Qty: 1 RF: 0 ipratropium-albuterol 0.5 mg-3 mg(2.5 mg base)/3 mL solution for nebulization 3 ml INHALATION Q4H PRN PRN (Reason: COPD J44.9) Qty: 180 RF: 6 albuterol sulfate 90 mcg/actuation HFA aerosol inhaler 2 puff INHALATION Q6H PRN PRN (Reason: Wheezing) Qty: 18 RF: 6 Stiolto Respimat 2.5-2.5 mcg/actuation mist 2 puff inhalation DAILY RF: 0 losartan 25 MG tablet 25 mg PO DAILY RF: 0 rosuvastatin 20 MG tablet 20 mg PO QHS RF: 0 levalbuterol tartrate 15 GM HFA aerosol inhaler 2 inh inhalation Q6H PRN (Reason: Sob &/Or Wheezing) RF: 0 Symbicort 160-4.5 mcg/actuation HFA aerosol inhaler 2 puff INHALATION BID Qty: 3 RF: 3 Spiriva Respimat 2.5 mcg/actuation mist 2 puff INHALATION QDAY Qty: 3 RF: 3 Primary Care Provider: Ana Barrera Referrals: Ana Barrera DO [Primary Care Provider] - Arcadio Trujillo DO [STAFF PHYSICIAN] - 3-5 Days Disposition Disposition: Home, Self Care
--- NOTE | 2021-01-13 17:50 | RAD_ITS ---
STUDY: X-RAY - LEFT KNEE REASON FOR EXAM: Male, 75 years old. Injury/Pain TECHNIQUE: 4 view(s) of the knee. COMPARISON: None. FINDINGS: Normal visualized distal femur. Normal visualized proximal tibia and fibula. Normal proximal tibiofibular articulation. Normal medial femorotibial compartment. Normal lateral femorotibial compartment. Normal patellofemoral articulation. The soft tissue structures are unremarkable. RAD/Knee 4 or More Views IMPRESSION: Normal x-ray examination of the knee. Electronically Signed: Sergio Erazo MD at 18:20 EDT Tel , Service support ,
[2021-01-13 19:42] VITALS: RESP 18
== END 2021-01-13 19:42 | disposition home or self-care (01) ==
PROVIDERS: Emergency Provider Emergency Medicine; PCP Internal Medicine
DX: S76.112A Strain of left quadriceps muscle, fascia and tendon, initial encounter (principal); X58.XXXA Exposure to other specified factors, initial encounter; Y93.9 Activity, unspecified; Y92.9 Unspecified place or not applicable; J44.9 Chronic obstructive pulmonary disease, unspecified; M19.90 Unspecified osteoarthritis, unspecified site; M79.7 Fibromyalgia; E66.9 Obesity, unspecified; Z68.34 Body mass index [BMI] 34.0-34.9, adult; G47.33 Obstructive sleep apnea (adult) (pediatric); I48.0 Paroxysmal atrial fibrillation; G25.81 Restless legs syndrome; Z86.711 Personal history of pulmonary embolism; Z79.01 Long term (current) use of anticoagulants; Z79.899 Other long term (current) drug therapy; Z87.891 Personal history of nicotine dependence
CPT/HCPCS: 73564; 99284

== ENCOUNTER 2021-02-24 05:42 | Day surgery (SDC) | payer MEDICARE, SELFPAY ==
[2015-12-24 10:00] VITALS: BMI 32.3
[2021-02-24] VITALS (8 sets, daily range): BP systolic 130–162; BP diastolic 62–79; PULSE 69–75; RESP 16–18; TEMP 36–36.6; O2SAT 90–100; BMI 32.8
[2021-02-24 06:51] LABS: Hematocrit 41.2 % (40-54); Hemoglobin 13.6 g/dL (13.0-16.5); Mean Corpuscular Hgb 30.8 pg (27.0-32.0); Mean Corpuscular Volume 93.4 fL (80-94); Platelet Count 249 K/mm3 (150-450); RBC Distribution Width CV 13.6 % (11.6-14.6); RBC Distribution Width SD 46.7 fl (35.1-43.9); Red Blood Count 4.41 M/mm3 (4.6-6.2); White Blood Count 7.5 K/mm3 (4.4-11.0)
[2021-02-24] MEDS: Lactated Ringers 1,000 ML 100 ML IV ×2 (06:56→08:45)
[2021-02-24 07:04] LABS: Anion Gap 7 (5-15); BUN 22 mg/dL (7-18); BUN/Creat Ratio 19.3 RATIO (10-20); Calcium,Total 9.1 mg/dL (8.5-10.1); Chloride 105 mmol/L (98-107); Creatinine, Serum 1.14 mg/dL (0.70-1.30); EST Glomerular Filtration Rate 67 mL/min (>60); Est Glom Filt Rate - Afr Amer 81 mL/min (>60); Glucose 117 mg/dL (74-106); Potassium 3.5 mmol/L (3.5-5.1); Sodium Level 139 mmol/L (136-145)
[2021-02-24] MEDS: Cefazolin 2 GM in 0.9% Normal Saline 100 ML IV (07:29)
--- NOTE | 2021-02-24 08:35 | OP.PCM_ITS ---
Report of Operation Date of Procedure: 02/24/21 Pre-Operative Diagnosis: Left quadriceps tendon tear and internal derangement l eft knee Post-Operative Diagnosis: same with MMT and Grade 2 chondromalacia patellofemoral joint Surgery/Procedure Performed:: Left quad tendon repair and arthroscopy with arthroscopic partial medial meniscectomy and chondroplasty PFJ Surgeon: Arcadio Trujillo occupational therapy department chair: Lavelle Hall Type of Anesthesia: General/Regional Anesthesiologist: Noe Jefferson Estimated Blood Loss (mL): 20 cc Admit VTE Documentation VTE Present on Admission: No VTE Mechan Device Prophylaxis: SCD's and Thigh High INGRID Hose VTE Pharm Prophylaxis ordered?: No Reason prophylaxis not ordered:: Treatment Not Indicated
[2021-02-24] MEDS: Lidocaine 1% /Epi 1:100 (20ml) 20 ML Vial (08:36)
[2021-02-24] MEDS: Epinephrine (1 mg/ml) 1 MG/ML VIAL (08:36)
[2021-02-24] MEDS: HYDROcodone Bitartrate/Apap 5/325 Tablet PO (10:51)
== END 2021-02-24 12:00 | disposition home or self-care (01) ==
LOC: SDC 05:43 → AC 05:46
PROVIDERS: PCP Internal Medicine; Referring Provider Orthopaedic Surgery; Visit Provider Orthopaedic Surgery
PROC: (CPT 29870; principal; 2021-02-24 07:10)
PROC: (CPT 29881; 2021-02-24 07:10)
DX: S83.232A Complex tear of medial meniscus, current injury, left knee, initial encounter (principal); S76.192A Other specified injury of left quadriceps muscle, fascia and tendon, initial encounter; I10 Essential (primary) hypertension; M22.42 Chondromalacia patellae, left knee; X50.9XXA Other and unspecified overexertion or strenuous movements or postures, initial encounter; Y93.89 Activity, other specified; Y92.512 Supermarket, store or market as the place of occurrence of the external cause
CPT/HCPCS: 01400; 29881; 80048; 85027; 87426; C9803; J7120; J2405

== ENCOUNTER → 2021-10-31 | Outpatient (CLI) | payer OTHER, SELFPAY ==
[2015-12-24 10:00] VITALS: BMI 32.3
--- NOTE | 2021-10-31 08:14 | CT_ITS ---
There are degenerative changes. No evidence of fracture. There is osteophyte formation at the acromioclavicular joint. At the glenohumeral articulation osteophyte formation is present at the humeral head superiorly. CT/Extremity Upper without Contra IMPRESSION: There are degenerative changes of the glenohumeral joint and the acromioclavicular joint. Electronically Signed: Robbin Light MD at 4:28 EDT ,
== END | disposition home or self-care (01) ==
LOC: CT 08:12
PROVIDERS: PCP Internal Medicine; Referring Provider Specialist; Visit Provider Specialist
DX: M19.112 Post-traumatic osteoarthritis, left shoulder (principal)
CPT/HCPCS: 73200

== ENCOUNTER → 2021-11-14 | Outpatient (CLI) | payer MEDICARE, SELFPAY ==
[2015-12-24 10:00] VITALS: BMI 32.3
--- NOTE | 2021-11-14 11:40 | NEURO_ITS ---
NCS and/or EMG Patient Report Ordering Doctor: Omar Weeks DATE OF SERVICE: 11/14/21 Indication: Pain radiating down the left upper extremity. Numbness in the hand. Decreased evaluation specialist strength. Findings: Nerve conduction studies were performed in the left upper extremity. The left median motor study recording the abductor pollicis brevis showed a borderline amplitude, prolonged distal latency and slowed conduction velocity. The left ulnar motor study recording the abductor digiti minimi showed a normal amplitu de, normal distal latency and normal conduction velocity. Focal slowing was present across the elbow. The left ulnar motor study recording the first dorsal interosseous showed a reduced amplitude, normal distal latency and normal conduction velocity. Focal slowing was present across the elbow. The left median sensory response recording digit two showed a reduced amplitude, prolonged latency and markedly slowed conduction velocity. The left ulnar sensory response recording digit five was absent. The left radial sensory response recording over the extensor snuff box showed a normal amplitude, latency and conduction velocity. Needle EMG of the left upper extremity muscles was performed. The cervical paraspinal were not sampled due to the patient being on anticoagulation. No denervation was seen in any muscle, though insertional activity was increased in the first dorsal interosseous. Motor units were large amplitude, long duration and polyphasic with decreased recruitment in the flexor digitorum profundus (ulnar) and first dorsal interosseous muscles. Motor units were large amplitude, long duration with decreased recruitment in the abductor pollicis brevis muscle. The deltoid and triceps demonstrated normal morphology, activation and recruitment patterns. Impression: This is a markedly abnormal study. 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 The pathophysiology is demyelination though there is evidence of secondary axonal injury. In addition, there is electrophysiologic evidence of a moderate median neuropathy across the left wrist. This finding is compatible with the clinical diagnosis of carpal tunnel syndrome. A superimposed cervical radiculopathy cannot be excluded by this study. If clinically indicated, a more extensive evaluation off anticoagulation could be considered. Judah Kamara D.O. Multi Select Codes Neurology Neurology Interp Codes: 44670-63 Musc test done w/n test comp (interp) and 68090-48 Nrv cndj tst 5-6 studies (interp)
== END | disposition home or self-care (01) ==
LOC: PSN 10:13
PROVIDERS: PCP Internal Medicine; Referring Provider Specialist; Visit Provider Specialist
DX: R20.2 Paresthesia of skin (principal)
CPT/HCPCS: 95886; 95909

== ENCOUNTER 2023-10-27 18:49 | Emergency (ER) | payer MEDICARE, SELFPAY ==
[2015-12-24 10:00] VITALS: BMI 32.3
[2023-10-27 18:50] VITALS: BP 130/67; PULSE 78; RESP 16; TEMP 36.9; O2SAT 97; BMI 30.1
--- NOTE | 2023-10-27 18:57 | EX.ED.GENINJ ---
HPI History of Present Illness Chief Complaint: Laceration [facility] Medical History (Reviewed 06/30/23 @ 10:29 by Arabella Pérez CLINICAL LAW PROFESSOR, CLINICAL LAW PROFESSOR-C) Alcohol use Arthritis Asbestos exposure Cardiology follow-up encounter COPD CPAP (continuous positive airway pressure) dependence DDD (degenerative disc disease) Fibromyalgia Former smoker Gastric reflux Hiatal hernia History of stress test History of tobacco abuse Hyperglycemia Hyperlipemia Hypertension Insomnia Obesity ASTON (obstructive sleep apnea) Osteoarthritis Paroxysmal atrial fibrillation PTSD (post-traumatic stress disorder) Pulmonary embolism Restless leg syndrome Shortness of breath on exertion Stage 3 severe COPD by GOLD classification Ventral hernia Wears contact lenses Wears dentures Wears hearing aid Home Medications losartan 25 mg tablet 25 mg PO DAILY bp 09/05/15 [History Last Taken Unknown] cholecalciferol (vitamin D3) 1,250 mcg (50,000 unit) capsule 50,000 unit PO QWEEK 07/28/17 [History Last Taken Unknown] flecainide 100 mg tablet 100 mg PO BID heart #60 tabs 03/09/19 [History Last Taken 02/24/21 04:30] rosuvastatin 20 mg tablet 20 mg PO QHS cholesterol 07/14/19 [History Last Taken Unknown] apixaban 5 mg tablet 5 mg PO BID 02/29/20 [History Last Taken Unknown] ipratropium 0.5 mg-albuterol 3 mg (2.5 mg base)/3 mL nebulization soln 3 ml inhalation Q4H PRN shortness of breath or wheezing #180 mL 10/22/21 [Rx Last Taken Unknown] acetaminophen 325 mg capsule (Tylenol) 325 mg PO ONCE PRN 01/13/22 [History Last Taken Unknown] albuterol sulfate 90 mcg/actuation aerosol inhaler 2 puff inhalation Q6H PRN PRN Wheezing #18 grams 11/25/22 [Rx Last Taken Unknown] budesonide-formoterol HFA 160 mcg-4.5 mcg/actuation aerosol inhaler (Symbicort) 2 puff inhalation BID #1 ea 06/30/23 [Rx Last Taken Unknown] buspirone 5 mg tablet mg PO TID 06/30/23 [History Last Taken Unknown] duloxetine 60 mg capsule,delayed release mg PO ONCE 06/30/23 [History Last Taken Unknown] trazodone 100 mg tablet mg PO QHS 06/30/23 [History Last Taken Unknown] Allergy/AdvReac Type Severity Reaction Status Date / Time No Known Allergies Allergy Verified 10/27/23 18:54 Family History Father Heart disease Sister Heart disease Brother Heart disease Uncle Prostate cancer Surgical History Amputation finger H/O shoulder surgery History of foot surgery History of rotator cuff surgery Hx of cardiac cath Social History Smoking Status: Former smoker quit date: 07/05/92 Tobacco: How many years used: 20 alcohol intake: current alcohol intake frequency: holidays/special occasions only substance use type: does not use EXAM Physical Exam Const Vital Signs: 10/27/23 18:50 Temperature 98.4 F Temperature Source Temporal Pulse Rate 78 Respiratory Rate 16 Blood Pressure 130/67 H Blood Pressure Mean 88 Pulse Ox 97 Oxygen Delivery Method Room Air MDM MDM [facility] Narrative Medical decision making narrative: HISTORY OF PRESENT ILLNESS: 78-year-old male here for laceration to left wrist from a watch parts grinder. Patient is right-hand dominant. This occurred just prior to arrival. Bleeding controlled. REVIEW OF SYSTEMS: Pertinent positives: Laceration Pertinent negatives: Loss of sensation PHYSICAL EXAM: Nursing triage notes reviewed, Vital signs reviewed Constitutional: please see mdm Extremities: No edema Neuro: intact 5/5 strength with ok sign (median), intact finger abduction (ulnar) intact wrist extension (radial n). Intact sensation in the radial, ulnar, and median nerve distributions. Skin: Proximal and centimeter linear laceration noted to the base of the first digit of the left hand MEDICAL DECISION MAKING: Chief Complaint: Laceration External records reviewed: Unknown last tetanus [facility] Social determinants of health: History of alcohol abuse History obtained from others: none Consults: none [facility] Narrative: Patient was hemodynamically stable, afebrile nontoxic- appearing. Exam with linear laceration. No tendon involvement. Bleeding controlled. Tetanus updated. Laceration was repaired. The patient suffered lacerations to the left wrist On exam there was no evidence of foreign bodies. There was no evidence of neurovascular injury. Patient had a normal distal vascular exam, and had intact ROM and sensation. There was also no evidence of tendon injury, with normal distal full range of motion, flexion, extension, abduction, abduction. There is no evidence of local joint space involvement at this time. Wound care applied (irrigation and/or local cleansing solution). Laceration repair was then performed please see procedure note. The patient was given signs and symptoms warnings for infection, such as increasing pain, redness, swelling, associated heat, pus or fever. Patient was given instructions for timely follow-up for removal. Patient agreed with the plan of care Procedure: Laceration repair. The procedure was performed by myself. Indication: Wound repair Risks and benefits: risks, benefits and alternatives were discussed Consent: Consent was obtained. Wound Details: 1 cm in length, 1 mm in diam Anesthesia: 1% lidocaine Wound prep: Patient was prepped and draped in the usual sterile fashion. Tetanus: Updated today Irrigation Solution: Saline Wound Preparation: Irrigated with copious normal saline, cleaned with chlorhexidine The wound was explored to its base in a bloodless field. Procedure Description: Placed for interrupted 5-0 Vicryl sutures Patient tolerated the procedure well with no immediate complications The patient and/or family, caregivers express understanding. The patient and/or family, caregivers agrees with the plan. Shared decision making: I will have a discussion with the patient and or visitors regarding risk/benefits of further testing or admission. They will be made aware of of the risk/benefits inherent in this decision they will be given the opportunity to voice understanding. Total critical care time today provided was at least 0 minutes. This excludes separately billable procedures. Critical care time (if documented) is secondary to the patient having high probability of clinically significant/life threatening deterioration in the patient's condition which required my urgent intervention. Impression: 1. Laceration Dispo: Discharge This note was generated with [employer] dictation software. It may contain incorrect words, spelling, and punctuation that were not noted in review of the chart prior to signing. Discharge Plan Triage Chief Complaint: Laceration ED Provider: Ranjit Vasquez Dx/Rx/DC Orders Clinical Impression: Laceration Instructions: ED Laceration Extremity Prescriptions: No Action cholecalciferol (vitamin D3) 50,000 unit capsule 50,000 unit PO QWEEK flecainide 100 mg tablet 100 mg PO BID Qty: 60 Patient Comments: TAKE 1 TABLET BY MOUTH TWICE DAILY apixaban 5 mg tablet 5 mg PO BID Patient Comments: per pt, last dose to be 02/21/[address] Trujillo for surgery on 02/24/21 ipratropium-albuterol 0.5 mg-3 mg(2.5 mg base)/3 mL solution for nebulization 3 ml inhalation Q4H PRN (Reason: shortness of breath or wheezing) Qty: 180 3RF acetaminophen [Tylenol] 325 mg capsule 325 mg PO ONCE PRN albuterol sulfate 90 mcg/actuation HFA aerosol inhaler 2 puff INHALATION Q6H PRN PRN (Reason: Wheezing) Qty: 18 6RF buspirone 5 mg tablet PO TID trazodone 100 mg tablet PO QHS duloxetine 60 mg capsule,delayed release(DR/EC) PO ONCE budesonide-formoterol [Symbicort] 160-4.5 mcg/actuation HFA aerosol inhaler 2 puff inhalation BID Qty: 1 11RF Rx Instructions: administer with spacer, rinse mouth after each use losartan 25 MG tablet 25 mg PO DAILY rosuvastatin 20 MG tablet 20 mg PO QHS Primary Care Provider: Ana Barrera Referrals: Ana Barrera, [Primary Care Provider] - Activity Restrictions/Additional Instructions: Thank you for trusting us with your care today! Please take Tylenol (2 pills, 650 mg), ibuprofen (2 pills, 400 mg) every 6 hours as needed for pain and fever control. Please watch out for signs of infection which include redness, increasing pain, vaginal discharge, fever. He signs about please return to the ED immediately Please return to the emergency department if your symptoms change or worsen. Please follow with your primary care physician for further outpatient evaluation and management. Disposition Disposition: Home, Self Care
[2023-10-27] MEDS: Diphth,Pertuss(Acell),Tet Vac 0.5 ML Vial IM (19:28)
== END 2023-10-27 19:42 | disposition home or self-care (01) ==
LOC: ED 19:24
PROVIDERS: Emergency Provider Emergency Medicine; PCP Internal Medicine; Visit Provider Emergency Medicine
DX: S61.512A Laceration without foreign body of left wrist, initial encounter (principal); J44.9 Chronic obstructive pulmonary disease, unspecified; I48.0 Paroxysmal atrial fibrillation; Z87.891 Personal history of nicotine dependence; E78.5 Hyperlipidemia, unspecified; I10 Essential (primary) hypertension; G47.33 Obstructive sleep apnea (adult) (pediatric); Z99.89 Dependence on other enabling machines and devices; Z79.899 Other long term (current) drug therapy; Z79.01 Long term (current) use of anticoagulants; Z79.51 Long term (current) use of inhaled steroids; W26.8XXA Contact with other sharp object(s), not elsewhere classified, initial encounter; Z23 Encounter for immunization
CPT/HCPCS: 12001; 90471; 99282

== ENCOUNTER 2024-10-09 12:32 | Outpatient (CLI) | payer MEDICARE, SELFPAY ==
[2015-12-24 10:00] VITALS: BMI 32.3
--- NOTE | 2024-10-09 12:34 | RAD_ITS ---
EXAM: XR Right Wrist Complete, 3 or More Views CLINICAL INDICATION: PAIN TECHNIQUE: Frontal, lateral and oblique views of the right wrist. COMPARISON: No relevant prior studies available. FINDINGS: BONES/JOINTS: See below. SOFT TISSUES: Severe degenerative changes of the wrist with soft tissue swelling. Subtle fracture can not be excluded. No gross fracture. No radiopaque foreign body. RAD/Wrist min 3 Views IMPRESSION: 1. Severe degenerative changes of the wrist with soft tissue swelling. Subtle fracture can not be excluded. No gross fracture. 2. If symptoms persist, further evaluation with MRI is recommended. Reading [facility]
--- NOTE | 2024-10-09 12:34 | RAD_ITS ---
EXAM: XR Right Hand Complete, 3 or More Views CLINICAL INDICATION: PAIN TECHNIQUE: Frontal, lateral and oblique views of the right hand. COMPARISON: No relevant prior studies available. FINDINGS: BONES/JOINTS: Severe degenerative change of the intercarpal joints. SOFT TISSUES: Soft tissue swelling without acute fracture. No radiopaque foreign body. RAD/Hand Min 3 Views IMPRESSION: 1. Soft tissue swelling without acute fracture. 2. If symptoms persist, further evaluation with CT is recommended. [facility]
[2024-10-09 16:09] LABS: Absolute Lymphocyte Count 1.11 X10^3/uL (0.83-4.51); Basophil# 0.06 X10^3/uL; Basophil% 0.6 % (0-1); Hematocrit 44.8 % (40-54); Lymphocyte # 1.11 X10^3/ul (0.83-4.51); Lymphocyte % 10.7 % (19-41); Mean Corp Hgb Conc 33.5 g/dL (32-36); Mean Corpuscular Volume 92.6 fL (80-94); Mean Platelet Vol. 9.4 fl (6.2-12.0); Monocyte# 1.12 X10^3/uL; Monocyte% 10.8 % (0-10); NRBC Flagged by Analyzer 0 % (0-5); Neutrophil # 7.98 X10^3/uL (2.7-7.7); Neutrophil % 76.5 % (47-70); Platelet Count 218 K/mm3 (150-450); RBC Distribution Width CV 13.2 % (11.6-14.6); RBC Distribution Width SD 44.8 fl (35.1-43.9); Red Blood Count 4.84 M/mm3 (4.6-6.2); White Blood Count 10.4 K/mm3 (4.4-11.0)
[2024-10-09 16:30] LABS: Erythrocyte Sedimentation Rate 10 mm/hr (0-20)
[2024-10-09 16:40] LABS: Uric Acid 5.1 mg/dL (3.5-7.2)
[2024-10-09 16:52] LABS: ALB/GLOB Ratio 1.1 RATIO (0.9-2.4); Alanine Aminotransfer ALT/SGPT 8 U/L (<=46); Albumin, Serum 4.2 g/dL (3.4-4.8); Alkaline Phosphatase 66 U/L (40-129); Anion Gap 12 (5-15); BUN 21 mg/dL (4-19); BUN/Creat Ratio 21.5 RATIO (10-20); Calcium,Total 9.9 mg/dL (7.6-11.0); Chloride 101 mmol/L (98-108); Creatinine, Serum 0.95 mg/dL (0.70-1.20); EST Glomerular Filtration Rate 82 (>60); Globulin 3.8 g/dL (2.2-4.2); Glucose 92 mg/dL (70-99); Potassium 4.6 mmol/L (3.3-5.1); Sodium Level 141 mmol/L (133-145); Total Bilirubin 1.14 mg/dL (0.00-1.30)
[2024-10-09 17:02] LABS: AST(SGOT) 13 U/L (<=37)
[2024-10-11 08:09] LABS: CRP, High Sensitivity 58.49 mg/L (0.00-3.00)
== END 2024-10-09 23:59 | disposition home or self-care (01) ==
PROVIDERS: PCP Internal Medicine; Referring Provider Nurse Practitioner Family; Visit Provider Physician Assistant
DX: M25.531 Pain in right wrist (principal); M79.641 Pain in right hand
CPT/HCPCS: 73110; 73130; 80053; 84550; 85025; 85652; 86141

== ENCOUNTER → 2025-03-21 | Outpatient (CLI) | payer MEDICARE, SELFPAY ==
[2024-10-17 11:53] VITALS: BMI 32.3
[2025-03-21 12:49] VITALS: PULSE 60; PULSE 64; PULSE 78; PULSE 88; PULSE 89; PULSE 90; PULSE 93; O2SAT 90; O2SAT 91; O2SAT 94; O2SAT 95; O2SAT 96
--- NOTE | 2025-03-23 10:37 | PCM.PSN.6M ---
PSN 6 Minute Walk Test 6 Minute Walk Test 6 Minute Walk Test: 6 Minute Walk Test PSN:6-Minute Walk Test Start: 03/21/25 12:48 Freq: Status: Active Protocol: [id number].6MINW Document 03/21/25 12:49 JAMIE (Rec: 03/21/25 12:51 JAMIE [id number]) 6 Minute Walk Test Date Performed 03/21/25 Time Performed 12:30 Height 5 ft 8.5 in Weight: 224 lb Weight in Pounds 224.[address]: Arabella Pérez RESEARCH MANUFACTURING OPERATOR Assistive device None used: Pre-test Oxygen Delivery Room Air Method Pulse Ox (%) 95 Pulse Rate (60-100 60 beats/min) Dyspnea Shawn Scale ( 1 0-10) Exertion Shawn Scale 6 (6-20) 1st minute Oxygen Delivery Room Air Method Pulse Ox (%) 94 Pulse Rate (60-100 78 beats/min) 2nd minute Oxygen Delivery Room Air Method Pulse Ox (%) 91 Pulse Rate (60-100 90 beats/min) 3rd minute Oxygen Delivery Room Air Method Pulse Ox (%) 91 Pulse Rate (60-100 93 beats/min) 4th minute Oxygen Delivery Room Air Method Pulse Ox (%) 91 Pulse Rate (60-100 89 beats/min) 5th minute Oxygen Delivery Room Air Method Pulse Ox (%) 91 Pulse Rate (60-100 88 beats/min) 6th minute Oxygen Delivery Room Air Method Pulse Ox (%) 90 Pulse Rate (60-100 89 beats/min) Dyspnea Shawn Scale ( 5 0-10) Exertion Shawn Scale 13 (6-20) Post-test Oxygen Delivery Room Air Method Pulse Ox (%) 96 Pulse Rate (60-100 64 beats/min) Full Laps Walked 12 Partial Lap, Number 29 of Tiles Walked Total Distance 737 Walked (ft) Interpretation Interpretation: The patient ambulated 737 feet over the course of 6 minutes beginning on room air without assistive devices. Pretesting oxygen saturation was noted to be 95% on room air. With ambulation, the vanessa oxygen saturation was 90%. This represents a significant exertional oxygen desaturation, consistent with a pulmonary limitation to exercise tolerance. Recommendations Recommendations: There is no indication for the use of supplemental oxygen at this time. However, close interval follow-up is recommended, given the degree of oxygen desaturation noted during this study.
== END | disposition home or self-care (01) ==
LOC: PSN 12:16
PROVIDERS: PCP Internal Medicine; Referring Provider Nurse Practitioner Acute Care; Visit Provider Nurse Practitioner Acute Care
DX: J44.9 Chronic obstructive pulmonary disease, unspecified (principal)
CPT/HCPCS: 94618

== ENCOUNTER → 2025-05-28 | Outpatient (CLI) | payer MEDICARE, SELFPAY ==
[2024-10-17 11:53] VITALS: BMI 32.3
--- NOTE | 2025-05-28 15:30 | RAD_ITS ---
PROCEDURE: CHEST PA AND LATERAL 05/28/2025 REASON FOR EXAM: SHORTNESS OF BREATH TECHNIQUE: Procedure Code: RADCXR Modality: DX Procedure: CHEST PA AND LATERAL COMPARISON: Chest x-ray dated 09/02/2023 FINDINGS: Hardware: The radiopaque anchoring screws in the right humerus appear to be in satisfactory position without evidence of fracture or loosening. The left shoulder radiopaque hardware appears to be in satisfactory position without evidence of fracture or loosening. Please note that the entire prosthetic shoulder device is not included on this study. Heart: Heart size and configuration within normal limits. Arteriosclerotic vascular disease of the aorta is noted. Mediastinum: Unremarkable Lungs: Emphysematous changes are seen in the upper lung hicks. Lungs are hyperinflated with flattening of the hemidiaphragms. There is no atelectasis, consolidation, effusion, pneumonic infiltrate or pneumothorax. Bones: Bony demineralization of the thorax is noted. Spondylosis of the thoracic spine is noted. RAD/Chest PA and Lateral IMPRESSION: Chest x-ray findings compatible with COPD. Reading Location: [id number]
[2025-05-28 17:05] LABS: Anion Gap 9 (5-15); BUN 15 mg/dL (4-19); BUN/Creat Ratio 14.8 RATIO (10-20); Calcium,Total 9.1 mg/dL (7.6-11.0); Carbon Dioxide 27.0 mmol/L (21.0-32.0); Chloride 101 mmol/L (98-108); Glucose 82 mg/dL (70-99); Potassium 4.3 mmol/L (3.3-5.1); Pro- Brain NATRIURETIC PEPTIDE 109 pg/mL (<=1800)
== END | disposition home or self-care (01) ==
LOC: LAB 15:03
PROVIDERS: PCP Internal Medicine; Referring Provider Nurse Practitioner Acute Care; Visit Provider Nurse Practitioner Acute Care
DX: R06.02 Shortness of breath (principal)
CPT/HCPCS: 36415; 71046; 80048; 83880

== ENCOUNTER 2025-06-05 21:19 | Inpatient (IN) | payer MEDICARE, SELFPAY ==
[2024-10-17 11:53] VITALS: BMI 32.3
[2025-06-05] VITALS (8 sets, daily range): BP systolic 114–151; BP diastolic 62–69; PULSE 67–71; RESP 20–22; TEMP 37.3–37.8; O2SAT 87–94; BMI 33.4
--- NOTE | 2025-06-05 21:44 | EKG12_ITS ---
Test Reason : DYSRHYTHMIA Blood Pressure : */* mmHG Vent. Rate : 69 BPM Atrial Rate : 69 BPM P-R Int : 228 ms QRS Dur : 102 ms QT Int : 408 ms P-R-T Axes : 72 7 67 degrees QTcB Int : 437 ms Sinus rhythm with 1st degree A-V block Otherwise normal ECG Confirmed by Arcadio Waller ([id number]), senior editor DAWSON MOON ([id number]) on 06/06/2025 8:48:22 AM Referred By: Confirmed By: Arcadio Waller
--- NOTE | 2025-06-05 21:45 | EDS_ITS ---
HPI History of Present Illness Chief Complaint: Shortness of Breath Informant: patient, spouse/S.O., family and EMS Narrative Narrative: 80-year-old male presenting to the emergency room shortness of breath. states that she came home from [place] and found that his pulse ox was 81% on room air. He does not wear home oxygen. He has a history of COPD asthma overlap as well as A-fib. He has had recurrent pulmonary embolism and is on apixaban currently. states that they went to urgent care about a week ago with wheezing. He is on Augmentin. She notes a temperature of 100.4 today. EMS administered a DuoNeb and the patient also gave himself a treatment at home. Nursing here notes he is 92 to 94% on room air. Patient notes a moist cough. He also notes that his right hand is swollen painful and red. He states the last time his breathing got like this, the right hand did the same thing. He eventually went to [facility] and states that he had a cortisone injection which resolved it. He states that they did not think that it was gout. He does not recall what he was diagnosed with. Patient appeared to be in atrial fibrillation with changed to sinus during my examination [facility] Medical History PTSD (post-traumatic stress disorder) Wears contact lenses Wears hearing aid Wears dentures Alcohol use Arthritis Hyperlipemia Gastric reflux CPAP (continuous positive airway pressure) dependence Former smoker Shortness of breath on exertion Cardiology follow-up encounter History of stress test Hyperglycemia DDD (degenerative disc disease) Ventral hernia History of tobacco abuse Insomnia Hiatal hernia Osteoarthritis Fibromyalgia Asbestos exposure ASTON (obstructive sleep apnea) Obesity Pulmonary embolism Stage 3 severe COPD by GOLD classification Restless leg syndrome Paroxysmal atrial fibrillation Hypertension COPD Home Medications ?Medication ?Instructions ?Recorded ?Last Taken ?Type cholecalciferol (vitamin D3) 1,250 50,000 unit PO QWEE K 07/28/17 Unknown History mcg (50,000 unit) capsule flecainide 100 mg tablet 100 mg PO BID heart #60 tabs 03/09/19 02/24/21 04:30 History rosuvastatin 20 mg tablet 20 mg PO QHS cholesterol 04/23 Unknown History apixaban 5 mg tablet 5 mg PO BID 02/29/20 Unknown History ipratropium 0.5 mg-albuterol 3 mg 3 ml inhalation Q4H PRN shortness 10/22/21 Unknown Rx (2.5 mg base)/3 mL nebulization of breath or wheezing #180 mL soln duloxetine 60 mg capsule,delayed 60 mg PO DAILY Unknown History release buspirone 30 mg tablet 30 mg PO BID 11/29/24 Unknow n History diltiazem HCl 240 mg 240 mg PO QAM 11/29/24 Unkno wn History capsule,extended release 24 hr (Cartia XT) risperidone 0.5 mg tablet 0.5 mg PO QHS 11/29/24 Unkno wn History trazodone 100 mg tablet 100 mg PO QHS 11/29/24 Unkno wn History tiotropium bromide 2.5 2 puff inhalation QDAY #3 ea 03/02/25 Unknown Rx mcg/actuation mist for inhalation (Spiriva Respimat) albuterol sulfate 90 mcg/actuation 2 puff inhalation Q 6H PRN 05/28/25 Unknown Rx aerosol inhaler shortness of breath or wheez ing #18 grams budesonide-formoterol HFA 160 2 puff inhalation BID #1 ea 05/28/25 Unknown Rx mcg-4.5 mcg/actuation aerosol inhaler (Symbicort) amoxicillin 875 mg-potassium 1 tab PO Q12H 10 days #20 tabs 06/01/25 Unknown Rx clavulanate 125 mg tablet ipratropium 0.5 mg-albuterol 3 mg 3 ml inhalation Q6H 5 days #90 mL 06/01/25 Unknown Rx (2.5 mg base)/3 mL nebulization soln ipratropium bromide 21 mcg (0.03 2 spray intranasal BI D-TID PRN 06/01/25 Unknown Rx %) nasal spray postnasal drainage #30 mL paliperidone 3 mg tablet,extended 3 mg PO QHS 06/05/25 Unknown History release 24 hr Allergy/AdvReac Type Severity Reaction Status Date / Time No Known Allergies Allergy Verified 06/05/25 21:22 Family History Father Heart disease Sister Heart disease Brother Heart disease Uncle Prostate cancer Surgical History History of rotator cuff surgery History of foot surgery Hx of cardiac cath H/O shoulder surgery Amputation finger Social History Smoking Status: Former smoker quit date: 07/05/92 Tobacco: How many years used: 20 alcohol intake: current alcohol intake frequency: holidays/special occasions only substance use type: does not use ROS ROS ED Constitutional Constitutional ED: Reports chills and fever(s); Denies weight loss Eyes Eyes: Denies change in vision or diplopia ENT ENT ED: Denies ear pain, rhinorrhea or sore throat Cardiovascular Cardiovascular: Denies chest pain, orthopnea, palpitations or racing heartbeat Respiratory/Chest Respiratory/Chest: Reports cough, dyspnea and dyspnea on exertion; Denies orthopnea Gastrointestinal Gastrointestinal: Denies abdominal pain, diarrhea, nausea or vomiting Genitourinary Genitourinary ED: Denies dysuria, hematuria or urinary frequency Musculoskeletal Musculoskeletal: Reports other Details: Swollen painful red left wrist ; Denies arthralgias or myalgias Integumentary Denies abscess or rash Neurologic Neurologic: Denies headache(s) or weakness Psychiatric Psychiatric: Denies anxiety, depression, suicidal ideation or suicidal thoughts Endocrine Endocrinology: Denies polydipsia, polyphagia or polyuria Allergic/Immunologic Allergic/Immunologic ED: Denies mouth swelling, tongue swelling or urticaria EXAM Physical Exam Const Vital Signs: 06/05/25 21:21 06/05/25 21:26 06/05/25 21:27 Temperature 99.2 F H 99.2 F H Temperature Source Oral Oral Pulse Rate 71 70 Respiratory Rate 20 H 20 H Respiratory Effort Short of Breath Labored Respiratory Depth Shallow Respiratory Pattern Tachypnea Blood Pressure 114/62 114/62 Blood Pressure Mean 79 79 Pulse Ox 94 94 Oxygen Delivery Method Room Air Room Air Room Air 06/05/25 22:26 06/05/25 23:00 Temperature 100.1 F H 100 F H Temperature Source Oral Oral Pulse Rate 67 67 Respiratory Rate 22 H 22 H Respiratory Effort Respiratory Depth Respiratory Pattern Blood Pressure 141/68 H 151/69 H Blood Pressure Mean 92 96 Pulse Ox 93 91 Oxygen Delivery Method Room Air Room Air Positive well nourished, well developed and obese General Appearance ED: well developed and NAD Nutritional Appearance: obese HEENT Reports normocephalic, head/scalp atraumatic and moist mucous membranes Eyes PERRL and EOMs intact bilaterally Neck no lymphadenopathy, supple and no JVD Resp Resp Narrative: Patient with slight dyspnea. He has audible rhonchi. Cardio regular rate, regular rhythm and no murmurs GI normal to inspection, nondistended, normoactive bowel sounds and non-tender Palpation: soft Back/Spine no CVA tenderness and normal ROM Extremity Extremity Narrative: Left dorsum and lateral aspect of the hand and wrist is mildly swollen and painful. Painful range of motion. There is some mild erythema and increased warmth. General Extremety ED: Negative for edema General Extremity: Negative for edema Neuro oriented x3, CN's II-XII intact bilaterally and no sensory deficits noted Sensorium / Orientation: alert Motor Exam: strength 5/5 throughout Psych mental status grossly normal Mood & Affect: Negative for depressed or tearful Skin no rashes or lesions noted and no wounds MDM MDM MDM Narrative Medical decision making narrative: Differential diagnosis includes viral syndrome gout pseudogout cellulitis COPD exacerbation pneumonia CHF Patient is anticoagulated on Eliquis. My independent interpretation chest x-ray is chronic changes no definitive infiltrate. Patient's temperature charanjit to 100.1. White hemoglobin 12.230. INR 1.5 PTT 43 normal creatinine glucose 131 lactic acid is normal normal LFTs troponin 18 BNP 589. Blood cultures and urine cultures obtained. Patient received a dose of Solu-Medrol. He has not been requiring supplemental oxygen. He is 89 to 90% room air currently. COVID influenza RSV swab negative. Urinalysis demonstrates 2+ bacteria 10-25 white cells positive leukocyte esterase negative nitrates. Culture obtained. He received a dose of oxycodone for the wrist pain. My independent interpretation of the plain films of the left wrist is no acute fracture. Clinically I do wonder if this is gout. He states when he had it in the right wrist it was steroid responsive to the cortisone injection. Given his hypoxia at home and his temperature and his age with multiple core morbidities do think it would be beneficial to observe him in the hospital tonight. History & Record Review Discussion w/independent historian: EMS personnel, Patient, Family and Significant other Additional record(s) reviewed:: Prior ED visit and Prior labs Lab Data Attestation: I reviewed the patient's lab results. Labs: Laboratory Results - last 24 hr 06/05/25 06/05/25 21:53 22:49 WBC 11.3 H RBC 4.06 L Hgb 12.5 L Hct 37.6 L MCV 92.6 MCH 30.8 MCHC 33.2 RDW Std Deviation 44.9 H RDW Coeff of Leonor 13.2 Plt Count 230 MPV 9.0 Immature Gran % (Auto) 1.100 H Neut % (Auto) 77.9 H Lymph % (Auto) 8.4 L Steele % (Auto) 11.5 H Eos % (Auto) 0.5 Baso % (Auto) 0.6 Absolute Neuts (auto) 8.8 H Absolute Lymphs (auto) 0.95 Nucleated RBC % 0 PT 18.3 H INR 1.5 APTT 43.0 H Sodium 136 Potassium 4.4 Chloride 99 Carbon Dioxide 27.6 Anion Gap 10 BUN 20 H Creatinine 1.03 Estim Creat Clear Calc 67.05 Est GFR (MDRD) Non-Af 74 BUN/Creatinine Ratio 19.2 Glucose 131 H Lactic Acid < 1.0 Calcium 9.2 Total Bilirubin 0.86 AST 21 ALT 18 Alkaline Phosphatase 64 Troponin T High Sens 19 NT pro BNP II 589 Total Protein 7.1 Albumin 3.6 Globulin 3.6 Albumin/Globulin Ratio 1.0 Urine Color Yellow Urine Clarity Sl. Cloudy Urine pH 6.0 Ur Specific Stryker 1.030 Urine Protein 100 H Urine Glucose (UA) Normal Urine Ketones Negative Urine Occult Blood 25 H Urine Nitrite Negative Urine Bilirubin Negative Urine Urobilinogen 4 H Ur Leukocyte Esterase 500 H Urine RBC 0-5 SEEN Urine WBC 10-25 SEEN Ur Squamous Epith Cells 0-5 SEEN Urine Bacteria 2+ Urine Mucus 1+ Radiography Diagnostic Testing: Clinical Impression(s) from Imaging Studies Chest X-Ray 06/05/25 22:00 IMPRESSION: Chronic interstitial emphysematous lung changes. No focal consolidation. Reading Location: [facility] EKG Initial EKG: Attestation: I personally reviewed and interpreted this EKG as follows: Comments: Sinus rhythm first-degree AV block ventricular rate 69 bpm Management Discussion w/another healthcare provider: Hospitalist Discharge Plan Dx/Rx/DC Orders Clinical Impression: COPD exacerbation, Swelling of left wrist, UTI (urinary tract infection) Disposition Disposition: Acute Care Hospital [facility]
--- NOTE | 2025-06-05 22:00 | RAD_ITS ---
PROCEDURE: CHEST 1 VIEW (PORTABLE) 06/05/2025 REASON FOR EXAM: COPD COUGH TECHNIQUE: Frontal view of the chest. COMPARISON: 05/28/2025 FINDINGS: Lungs/Pleura: Chronic interstitial emphysematous lung changes. No appreciable focal consolidation, pneumothorax or sizable pleural effusion. Heart/Mediastinum: Within normal limits. Bones/Soft tissues: Degenerative changes of the spine. Partially imaged left shoulder reverse arthroplasty hardware. Right humeral head anchor screws. RAD/Chest 1 View (Portable) IMPRESSION: Chronic interstitial emphysematous lung changes. No focal consolidation. Reading Location: [id number]
[2025-06-05 22:08] LABS: Hematocrit 37.6 % (40-54); Hemoglobin 12.5 g/dL (13.0-16.5); Immature Granulocytes Count 0.120 X10^3/uL (0.0-0.0); Mean Corp Hgb Conc 33.2 g/dL (32-36); Mean Corpuscular Volume 92.6 fL (80-94); Mean Platelet Vol. 9.0 fl (6.2-12.0); NRBC Flagged by Analyzer 0 % (0-5); Platelet Count 230 K/mm3 (150-450); RBC Distribution Width CV 13.2 % (11.6-14.6); RBC Distribution Width SD 44.9 fl (35.1-43.9); Red Blood Count 4.06 M/mm3 (4.6-6.2); White Blood Count 11.3 K/mm3 (4.4-11.0)
[2025-06-05 22:24] LABS: Prothrombin Time (Protime)PT. 18.3 SECONDS (11.7-14.9)
[2025-06-05 22:25] LABS: Partial Thromboplast Time 43.0 Seconds (24.1-36.2)
[2025-06-05 22:47] LABS: AST(SGOT) 21 U/L (<=37); Alanine Aminotransfer ALT/SGPT 18 U/L (<=46); Albumin, Serum 3.6 g/dL (3.4-4.8); Alkaline Phosphatase 64 U/L (40-129); Anion Gap 10 (5-15); BUN 20 mg/dL (4-19); BUN/Creat Ratio 19.2 RATIO (10-20); Calcium,Total 9.2 mg/dL (7.6-11.0); Carbon Dioxide 27.6 mmol/L (21.0-32.0); Chloride 99 mmol/L (98-108); Estimated Creatinine Clearance 67.05 ml/min (50-250); Globulin 3.6 g/dL (2.2-4.2); Glucose 131 mg/dL (70-99); Potassium 4.4 mmol/L (3.3-5.1); Pro- Brain NATRIURETIC PEPTIDE 589 pg/mL (<=1800); Troponin T High Sensitivity 19 ng/L (<=22)
[2025-06-05 23:06] LABS: Color, Urine Yellow (Yellow); Glucose, Dipstick Normal (Normal); Ketone-Dipstick Negative (Negative); Leukocyte Esterase-Dipstick 500 /ul (Negative); Nitrite-Dipstick Negative (Negative); Occult Blood-Urine 25 /ul (Negative); Protein-Dipstick 100 mg/dl (Negative); Specific Gravity, Urine 1.030 (1.002-1.030); Urine Bilirubin Dipstick Negative (Negative)
[2025-06-05 23:19] LABS: Red Blood Cells-Urine 0-5 SEEN /hpf (0-5); Squamous Epithelial Cells - UA 0-5 SEEN /hpf (0-5)
[2025-06-05 23:21] LABS: Mucous, Urine 1+ /hpf (<or=2+)
--- NOTE | 2025-06-05 23:21 | PCM.HP.STD ---
HPI - General General Date of Admission: 06/05/25 Date of Service: 06/05/25 Chief Complaint: Dyspnea, cough, wheezing. HPI Narrative The patient is a 80 y/o M w/ PMHx: Obesity, Asthma-COPD, Hx VTE (DVT, PE) on eliquis, PAF, Anxiety and Depression/PTSD/Mood disorder, Former tobacco use, GERD, ASTON on PAP therapy, RLS, HTN, HLD who presents to the [facility] ED on 06/05/2025 with history of 1 week history of fatigue, malaise, not markedly productive cough and intermittent wheezing with evaluation urgent care approximately 5 to 7 days previous to this with onset of symptoms with initiation of Augmentin and an inhaler without marked improvement on day of presentation he had elevated temperature in addition to this his noted he seemed to be dyspneic with increased respiratory rate prompting her to check his oxygenation and noted him to be 81% on room air prompting EMS call. In addition patient noted swelling of the left medial wrist on day of presentation with increased warmth and discomfort to touch and movements. He has had a similar history on the right wrist and had an injection of steroids in his wrist with orthopedic surgery and resolution following this. Workup in the ED included T99.2, heart rate 71, BP 114/62, respiratory rate 20, 94% on room air with most recent repeat vitals T100 oral, heart rate 67, BP 151/69, respiratory rate 22, 91% on room air, CBC with WBC 11.3, hemoglobin 12.5, MCV 92.6, platelet 230 with left shift, coags with INR 1.5, PT 18.3, PTT 43, CMP with BUN/creatinine 20/1.03, GFR 74, glucose 131, lactic acid less than 1, unremarkable hepatic profile, troponin 19, NT proBNPII 589, urinalysis noted to be cloudy, specific gravity 1.030, protein 100, occult blood 25, negative nitrite, leukocyte esterase 500 with urine WBCs 10-25 with 2+ urine bacteria, chest x-ray with chronic interstitial emphysematous lungs with no acute cardiopulmonary findings, rapid SARS COVID/influenza/RSV PCR negative, urine culture pending per ED, blood culture x 2 pending per ED. Upon evaluation plain film of the left wrist pending upon request evaluation of patient. In the ED patient ministered oxycodone 5 mg p.o. x 1, Solu-Medrol 125 mg IV x 1, Rocephin 1 g IV x 1, azithromycin 500 mg IV x 1. In the ED patient initially appeared to be in A-fib rate controlled however converted with EKG sinus rhythm. [facility] Medical History PTSD (post-traumatic stress disorder) Wears contact lenses Wears hearing aid Wears dentures Alcohol use Arthritis Hyperlipemia Gastric reflux CPAP (continuous positive airway pressure) dependence Former smoker Shortness of breath on exertion Cardiology follow-up encounter History of stress test Hyperglycemia DDD (degenerative disc disease) Ventral hernia History of tobacco abuse Insomnia Hiatal hernia Osteoarthritis Fibromyalgia Asbestos exposure ASTON (obstructive sleep apnea) Obesity Pulmonary embolism Stage 3 severe COPD by GOLD classification Restless leg syndrome Paroxysmal atrial fibrillation Hypertension COPD Home Medications ?Medication ?Instructions ?Recorded ?Last Taken ?Type cholecalciferol (vitamin D3) 1,250 50,000 unit PO QWEEK 07/28/17 Unknown History mcg (50,000 unit) capsule flecainide 100 mg tablet 100 mg PO BID heart #60 tabs 03/09/19 02/24/21 04:30 History rosuvastatin 20 mg tablet 20 mg PO QHS cholesterol 07/14/19 Unknown History apixaban 5 mg tablet 5 mg PO BID 02/29/20 Unknown History ipratropium 0.5 mg-albuterol 3 mg 3 ml inhalation Q4H PRN shortness 10/22/21 Unknown Rx (2.5 mg base)/3 mL nebulization of breath or wheezing #180 mL soln duloxetine 60 mg capsule,delayed 60 mg PO DAILY 06/30/23 Unknown History release buspirone 30 mg tablet 30 mg PO BID 11/29/24 Unknown History diltiazem HCl 240 mg 240 mg PO QAM 11/29/24 Unknown History capsule,extended release 24 hr (Cartia XT) risperidone 0.5 mg tablet 0.5 mg PO QHS 11/29/24 Unknown History trazodone 100 mg tablet 100 mg PO QHS 11/29/24 Unknown History tiotropium bromide 2.5 2 puff inhalation QDAY #3 ea 03/02/25 Unknown Rx mcg/actuation mist for inhalation (Spiriva Respimat) albuterol sulfate 90 mcg/actuation 2 puff inhalation Q6H PRN 05/28/25 Unknown Rx aerosol inhaler shortness of breath or wheezing #18 grams budesonide-formoterol HFA 160 2 puff inhalation BID #1 ea 05/28/25 Unknown Rx mcg-4.5 mcg/actuation aerosol inhaler (Symbicort) amoxicillin 875 mg-potassium 1 tab PO Q12H 10 days #20 tabs 06/01/25 Unknown Rx clavulanate 125 mg tablet ipratropium 0.5 mg-albuterol 3 mg 3 ml inhalation Q6H 5 days #90 mL 06/01/25 Unknown Rx (2.5 mg base)/3 mL nebulization soln ipratropium bromide 21 mcg (0.03 2 spray intranasal BID-TID PRN 06/01/25 Unknown Rx %) nasal spray postnasal drainage #30 mL paliperidone 3 mg tablet,extended 3 mg PO QHS 06/05/25 Unknown History release 24 hr Allergy/AdvReac Type Severity Reaction Status Date / Time No Known Allergies Allergy Verified 06/05/25 21:22 Family History (Updated 06/05/25 @ 23:[address] May Raymond MD) Father Heart disease Sister Heart disease Brother Heart disease Uncle Prostate cancer Mother Liver cancer Surgical History History of rotator cuff surgery History of foot surgery Hx of cardiac cath H/O shoulder surgery Amputation finger Social History (Updated 06/05/25 @ 23:[address] May Raymond MD) household members: spouse Smoking Status: Former smoker quit date: 07/05/92 Tobacco: How many years used: 20 alcohol intake: current alcohol intake frequency: holidays/special occasions only substance use type: does not use ROS ROS Narrative Admission Review of Systems: CONSTITUTIONAL: No weight loss, fever, chills, + weakness or fatigue. HEENT: Eyes: No visual loss, blurred vision, double vision or yellow sclerae. Ears, Nose, Throat: No hearing loss, sneezing, congestion, runny nose or sore throat. SKIN: No rash or itching, lesions, wounds. CARDIOVASCULAR: No chest pain, chest pressure or chest discomfort, palpitations, edema, orthopnea, syncopal events. RESPIRATORY: + Dyspnea, cough without marked sputum production, wheezing. No hemoptysis. GASTROINTESTINAL: No anorexia, nausea, vomiting or diarrhea, abdominal pain, melena, BRBPR. GENITOURINARY: No dysuria, frequency, urgency or retention. NEUROLOGICAL: No headache, dizziness, syncope, paralysis, ataxia, numbness or tingling in the extremities, focal weakness, change in bowel or bladder control, seizure. MUSCULOSKELETAL: + muscle, back pain, joint pain or stiffness. HEMATOLOGIC: + Chronic anemia, easy bleeding/bruising. LYMPHATICS: No enlarged nodes. No history of splenectomy. PSYCHIATRIC: + hx Anxiety and Depression/PTSD/Mood disorder. ENDOCRINOLOGIC: No reports of sweating, cold or heat intolerance. No polyuria or polydipsia. ALLERGIES: + Hx Asthma. Vital Signs Vital Signs Vital Signs: 06/05/25 21:21 06/05/25 21:26 06/05/25 21:27 Temperature 99.2 F H 99.2 F H Temperature Source Oral Oral Pulse Rate 71 70 Respiratory Rate 20 H 20 H Respiratory Effort Short of Breath Labored Respiratory Depth Shallow Respiratory Pattern Tachypnea Blood Pressure 114/62 114/62 Blood Pressure Mean 79 79 Pulse Ox 94 94 Oxygen Delivery Method Room Air Room Air Room Air 06/05/25 22:26 06/05/25 23:00 Temperature 100.1 F H 100 F H Temperature Source Oral Oral Pulse Rate 67 67 Respiratory Rate 22 H 22 H Respiratory Effort Respiratory Depth Respiratory Pattern Blood Pressure 141/68 H 151/69 H Blood Pressure Mean 92 96 Pulse Ox 93 91 Oxygen Delivery Method Room Air Room Air Weight Weight: 223 lb 1.725 oz Body Mass Index (BMI) 33.4 Physical Exam Narrative Physical Examination: General: Awake, alert, oriented x 3 and cooperative, seated upright in the ED bed, fatigued and ill-appearing. Skin: Normal color, normal turgor, no icterus, no cyanosis except occasional stage ecchymoses, abrasion.. HEENT: AT/NC, EOMI, PERRLA, mildly dry MM, no carotid bruits or JVD noted. Lungs: Diminished, greater bilateral bases, occasional end expiratory wheeze, mildly increased respiratory rate but no distress, bilaterally rhonchorous, no evidence of any distress. Heart: Currently regular rate and rhythm; no gallop, rub audible. Abdomen: Soft, obese, NTTP, ND, mildly hyperactive BS, no appreciated HSM. Extremities: No cyanosis, no clubbing, no significant distal pitting edema, mild bilateral ankle nonpitting edema reported as chronic. Neurological: Patient awake, alert, oriented as noted, cognitive function intact; pupils equally reactive to light and accommodation, cranial nerves grossly normal, moving all 4 extremities, no focal deficits, strength moderately to severely globally decreased. Psychiatric: Affect appears flat, fatigued, ill-appearing, no acute evidence of depressive or anxiety feelings but does have underlying history. Results Lab / Micro Data 06/05/25 21:53 06/05/25 21:53 Labs: Laboratory Results - last 24 hr 06/05/25 21:53: WBC 11.3 H, RBC 4.06 L, Hgb 12.5 L, Hct 37.6 L, MCV 92.6, MCH 30.8, MCHC 33.2, RDW Std Deviation 44.9 H, RDW Coeff of Leonor 13.2, Plt Count 230, MPV 9.0, Immature Gran % (Auto) 1.100 H, Neut % (Auto) 77.9 H, Lymph % (Auto) 8.4 L, [place] % (Auto) 11.5 H, Eos % (Auto) 0.5, Baso % (Auto) 0.6, Absolute Neuts (auto) 8.8 H, Absolute Lymphs (auto) 0.95, Nucleated RBC % 0, PT 18.3 H, INR 1.5, APTT 43.0 H, Sodium 136, Potassium 4.4, Chloride 99, Carbon Dioxide 27.6, Anion Gap 10, BUN 20 H, Creatinine 1.03, Estim Creat Clear Calc 67.05, Est GFR (MDRD) Non-Af 74, BUN/Creatinine Ratio 19.2, Glucose 131 H, Lactic Acid < 1.0, Calcium 9.2, Total Bilirubin 0.86, AST 21, ALT 18, Alkaline Phosphatase 64, Troponin T High Sens 19, NT pro BNP II 589, Total Protein 7.1, Albumin 3.6, Globulin 3.6, Albumin/Globulin Ratio 1.0 06/05/25 22:49: Urine Color Yellow, Urine Clarity Sl. Cloudy, Urine pH 6.0, Ur Specific [place] 1.030, Urine Protein 100 H, Urine Glucose (UA) Normal, Urine Ketones Negative, Urine Occult Blood 25 H, Urine Nitrite Negative, Urine Bilirubin Negative, Urine Urobilinogen 4 H, Ur Leukocyte Esterase 500 H, Urine RBC 0-5 SEEN, Urine WBC 10-25 SEEN, Ur Squamous Epith Cells 0-5 SEEN, Urine Bacteria 2+, Urine Mucus 1+ Micro: Microbiology 06/05/25 22:00 Mucosa - Nose SARS-CoV-2, Influenza & RSV (PCR) - Final Imaging Radiology Impression Chest X-Ray 06/05/25 22:00 IMPRESSION: Chronic interstitial emphysematous lung changes. No focal consolidation. 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, PAF, Anxiety and Depression/PTSD/Mood disorder, Former tobacco use, GERD, ASTON on PAP therapy, RLS, HTN, HLD who presents to the [facility] ED on 06/05/2025 with history of 1 week history of fatigue, malaise, not markedly productive cough and intermittent wheezing with evaluation urgent care approximately 5 to 7 days previous to this with onset of symptoms with initiation of Augmentin and an inhaler without marked improvement on day of presentation he had elevated temperature in addition to this his noted he seemed to be dyspneic with increased respiratory rate prompting her to check his oxygenation and noted him to be 81% on room air prompting EMS call. #1. Acute Hypoxia secondary to Acute on Chronic COPD-asthma exacerbation with concern for possible developing CAP versus acute bronchitis: Will admit to MS, currently oxygenation improved but if necessary will wean as tolerated room air, will maintain on ATC budesonide therapy similar to home regimen, will additionally add ATC duonebs, PRN albuterol, IV methylprednisolone, IV Rocephin and IV azithromycin given concern for developing pneumonia in addition to #2, encourage HOB, IS parameters, will obtain sputum Cx, respiratory viral panel, urine antigens, will plan to repeat chest x-ray in a.m following overnight judicious hydration given notably elevated specific [place]. PT/OT/case management consulted for discharge planning. #2. Possible Acute Complicated Urinary Tract Infection: UA upon ED evaluation remarkable, pending UCx, will monitor I/Os, continue IV Rocephin w/ transition as able pending sensitivities and speciation. Bld cx x 2 obtained in the ED. #3. Left medial wrist swelling, tenderness to palpation, possible gout versus CMC arthritis: Plain film pending per ED, as noted above initiated on IV Solu-Medrol as well as abx therapy concurrently, uric acid level requested. #4. Chronic normocytic anemia: Admission hemoglobin 12.5, MCV 92.6, has vacillated primarily 12-13, stable, continue to trend. #5. Anxiety and depression/PTSD/mood disorder: Will continue patient home psychiatric regimen including buspirone, trazodone with hold parameters as needed, paliperidone, duloxetine as well as risperidone home regimen, encourage continued follow-up outpatient evaluation as previously arranged. #6. PAF: Will continue patient on flecainide and Eliquis home regimen. Diltiazem also listed but unclear if taking, clarifying will add if appropriate. #7. Hypertension: Currently clarifying if patient is on diltiazem, adding if appropriate, PRN hydralazine. #8. Hyperlipidemia: Will continue patient home statin therapy. #9. Obesity: Weight loss and lifestyle changes encouraged. #10. History of VTE: Patient with history DVT, PE, continue patient home Eliquis regimen. #11. Former tobacco use: Encourage continued tobacco cessation. #12. ASTON: Will continue PAP therapy nightly. Patient is uncertain but he believes CPAP. #13. GERD: Per current list does not appear to be on regimen, will have as needed Mylanta for symptoms. #14. Restless leg syndrome: Per current list does not appear to be on any Requip or similar type medication, does use risperidone nightly however. #15. Chronic Kidney Disease Stage II per GFR trending: Admission BUN/Cr 20/1.03, GFR 74, baseline renal function primarily 0.9-1.1, repeat BMP in AM. #16. DVT prophylaxis: Will continue home Eliquis regimen. #17. CODE status: Patient does not have healthcare power of transportation broker or living will in place but he notes his significant who is present would be his medical decision-maker if necessary. Discussed CODE status at length including difference between FULL code, DNR-CCA and DNR-CC status. Following discussions about the differences in these status, requested Full Code status. Advanced Care Planning Face to Face Time: 16 minutes. Charges/Coding Visit Charges Inpatient E&M: 08225 Init Hosp L3 Procedures Hospitalists Procedures: 10447 Advncd Care Plan 30 Min
--- NOTE | 2025-06-05 23:22 | RAD_ITS ---
PROCEDURE: HAND MIN 3 VIEWS 06/05/2025 REASON FOR EXAM: PAIN AND SWELLING TECHNIQUE: Procedure Code: MARISELA Modality: DX Procedure: HAND MIN 3 VIEWS Laterality: Left FINDINGS: No acute fracture or dislocation. 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 Deformity of the distal tuft of the distal phalanx of the middle finger may be posttraumatic in nature. Degenerative changes including joint space narrowing and marginal osteophytosis are noted throughout the D IP joints, and most pronounced at the 1st carpal-metacarpal joint. Calcification within the ulnar carpal joint space could represent a degenerative calcification of the triangular fibrocartilage, or possibly an old ununited fracture of the ulnar styloid process. Disc space narrowing is also present at the radiocarpal joint space. Mild soft tissue swelling is noted throughout the hand and wrist. RAD/Hand Min 3 Views IMPRESSION: As above. Reading Location: [id number]
[2025-06-06] VITALS (11 sets, daily range): BP systolic 105–138; BP diastolic 55–82; PULSE 51–79; RESP 16–20; TEMP 36.1–37.5; O2SAT 92–97; BMI 31.4
[2025-06-06 00:21] LABS: Troponin T High Sens 2 HR 20 ng/L (<=22)
[2025-06-06] MEDS: Azithromycin 500 MG in 0.9% Normal Saline (250mL Bag) 250 ML 250 MG IV ×2 (00:34→23:00)
[2025-06-06] MEDS: APIXABAN 5 MG TABLET PO ×3 (01:18→22:59)
[2025-06-06] MEDS: 0.9% Normal Saline (1000mL) 1,000 ML 100 ML IV (01:21)
[2025-06-06 01:38] LABS: Procalcitonin 0.06 ng/mL (<=0.10)
[2025-06-06 02:13] LABS: Uric Acid 4.5 mg/dL (3.5-7.2)
[2025-06-06 02:35] LABS: Troponin T High Sens 4 HR 17 ng/L (<=22)
--- NOTE | 2025-06-06 04:40 | RAD_ITS ---
PROCEDURE: CHEST 1 VIEW (PORTABLE) 06/06/2025 REASON FOR EXAM: DYSPNEA, COUGH TECHNIQUE: Frontal view of the chest. COMPARISON: 06/05/2025 FINDINGS: Chronic interstitial emphysematous lung changes. Faint left basal infiltrates are seen. No effusion. No pneumothorax. Stable cardiac size. Stable osseous structures. RAD/Chest 1 View (Portable) IMPRESSION: Chronic interstitial emphysematous lung changes. Faint left basal infiltrates. Reading [facility] [address]
--- NOTE | 2025-06-06 06:01 | PN.HOSP_ITS ---
Reason for Visit Chief Complaint: Dyspnea, cough, wheezing. Subjective Subjective Patient is a 80-year-old gentleman who was admitted with shortness of breath. Checks x-ray obtained demonstrated focal interstitial emphysematous lung changes. Admitted to regular nursing floor for subsequent management Objective Data Objective Data Vital Signs: Vital Signs Temp Pulse Resp BP Pulse Ox O2 Del Method O2 Flow Rate 97.2 F L 51 L 18 128/75 H 96 Nasal Cannula 3 06/06/25 05:45 06/06/25 05:45 06/06/25 05:45 06/06/25 05:45 06/06/25 05:45 06/06/25 05:56 06/06/25 05:56 Oxygen Flow Rate (L/min) 3 Oxygen Delivery Method Nasal Cannula Weight: 88.2 kg Body Mass Index (BMI) 31.4 Intake & Output: Intake and Output for Last 24 Hours 06/04/25 06/05/25 06/06/25 23:59 23:59 23:59 Intake Total 300 / 300 Balance 300 / 300 Lab / Micro Data 06/06/25 05:23 06/06/25 05:23 Labs: Laboratory Results - last 24 hr 06/05/25 21:53: WBC 11.3 H, RBC 4.06 L, Hgb 12.5 L, Hct 37.6 L, MCV 92.6, MCH 30.8, MCHC 33.2, RDW Std Deviation 44.9 H, RDW Coeff of Leonor 13.2, Plt Count 230, MPV 9.0, Immature Gran % (Auto) 1.100 H, Neut % (Auto) 77.9 H, Lymph % (Auto) 8.4 L, [place] % (Auto) 11.5 H, Eos % (Auto) 0.5, Baso % (Auto) 0.6, Absolute Neuts (auto) 8.8 H, Absolute Lymphs (auto) 0.95, Nucleated RBC % 0, PT 18.3 H, INR 1.5, APTT 43.0 H, Sodium 136, Potassium 4.4, Chloride 99, Carbon Dioxide 27.6, Anion Gap 10, BUN 20 H, Creatinine 1.03, Estim Creat Clear Calc 67.05, Est GFR (MDRD) Non-Af 74, BUN/Creatinine Ratio 19.2, Glucose 131 H, Lactic Acid < 1.0, Calcium 9.2, Total Bilirubin 0.86, AST 21, ALT 18, Alkaline Phosphatase 64, Troponin T High Sens 19, NT pro BNP II 589, Total Protein 7.1, Albumin 3.6, Globulin 3.6, Albumin/Globulin Ratio 1.0 06/05/25 22:49: Urine Color Yellow, Urine Clarity Sl. Cloudy, Urine pH 6.0, Ur Specific [place] 1.030, Urine Protein 100 H, Urine Glucose (UA) Normal, Urine Ketones Negative, Urine Occult Blood 25 H, Urine Nitrite Negative, Urine Bilirubin Negative, Urine Urobilinogen 4 H, Ur Leukocyte Esterase 500 H, Urine RBC 0-5 SEEN, Urine WBC 10-25 SEEN, Ur Squamous Epith Cells 0-5 SEEN, Urine Bacteria 2+, Urine Mucus 1+ 06/05/25 23:40: Uric Acid 4.5, Troponin T Hi Sens 2 Hr 20, Procalcitonin 0.06 06/06/25 01:51: Troponin T Hi Sens 4Hr 17 Micro: Microbiology 06/06/25 01:27 Mucosa - Nasopharyngeal Respiratory Panel (PCR) - Final 06/05/25 22:49 Urine, Clean Catch Legionella Antigen - Final 06/05/25 22:49 Urine, Clean Catch Streptococcus pneumoniae Antigen (M - Final 06/05/25 22:00 Mucosa - Nose SARS-CoV-2, Influenza & RSV (PCR) - Final Radiography Diagnostic Testing: Radiology Impression Chest X-Ray 06/05/25 22:00 IMPRESSION: Chronic interstitial emphysematous lung changes. No focal consolidation. Reading Location: [facility] Hand X-Ray 06/05/25 23:22 IMPRESSION: As above. Reading Location: [id number] Chest X-Ray 06/06/25 04:40 IMPRESSION: Chronic interstitial emphysematous lung changes. Faint left basal infiltrates. Reading Location: [place] [address] Physical Exam Narrative GENERAL: cooperative HEENT: Atraumatic; normocephalic EYES; Anicteric, Normal Conjunctiva NECK; supple, normal thyroid, RESPIRATORY: Diminished to auscultation, some wheezes CARDIOVASCULAR: Regular S1 S2, GI: soft, normoactive bowel sounds, : No Renal angle tenderness; EXTREMITIES: No edema, no clubbing, MUSCULOSKELETAL: no muscle wasting NEURO: Awake; no lateralizing signs. SKIN: No Rash PSYCH; Flat affect Assessment & Plan Assessment/Plan (1) UTI (urinary tract infection): (2) COPD with acute bronchitis: PLAN: Plan Patient is a 80-year-old gentleman who was admitted with shortness of breath. Checks x-ray obtained demonstrated focal interstitial emphysematous lung changes. Admitted to regular nursing floor for subsequent management 1. Acute hypoxia ? Secondary to COPD with acute exacerbation admitted to regular nursing floor management bronchodilator, systemic steroid as well as antibiotics 2. Acute complicated UTI ? Patient started on ceftriaxone urine culture sent 3. Left wrist swelling ? Imaging studies demonstrated no acute fracture or dislocation. Patient was found to have degenerative joint changes. Plan is to treat symptomatically 4. Anemia ? Secondary to chronic disorder monitoring H&H and transfuse if patient becomes symptomatic or hemoglobin falls below 7 5. Class I obesity with BMI of 32 ?Complicating care, weight loss advised 6. History of previous VTE (DVT and PE ? Patient is on systemic anticoagulation with apixaban continue 7. Paroxysmal atrial fibrillation ? Patient is on flecainide and diltiazem in addition to systemic anticoagulation with apixaban continue 8. Dyslipidemia ?Patient is on statin therapy, continued at home dose 9. Hypertension ? Blood pressure controlled, home medications continued with dose adjustment as needed 10. Obstructive sleep apnea ? Patient is on PAP therapy at night consistent use encouraged 11. Depression with anxiety/PTSD ? Did continue patient home meds 13. Hyperglycemia ? Suspected to be secondary to use of steroid. Ordered hemoglobin A1c 14. DVT prophylaxis ? Patient already on systemic anticoagulation Time spent in the patient's overall evaluation,decision-making process, review of diagnostic data, adjustment of management, discussion with other providers, nursing nursing and ancillary staff involved in patient's care documentation,50 Minutes Charges/Coding Visit Charges Inpatient E&M: 74267 [facility] L3
[2025-06-06 06:09] LABS: Hematocrit 36.5 % (40-54); Hemoglobin 12.3 g/dL (13.0-16.5); Immature Granulocytes Count 0.100 X10^3/uL (0.0-0.0); Mean Corp Hgb Conc 33.7 g/dL (32-36); Mean Corpuscular Volume 91.5 fL (80-94); Mean Platelet Vol. 9.5 fl (6.2-12.0); NRBC Flagged by Analyzer 0 % (0-5); POSITIVE DIFFERENTIAL YES; Platelet Count 223 K/mm3 (150-450); RBC Distribution Width CV 13.1 % (11.6-14.6); RBC Distribution Width SD 44.2 fl (35.1-43.9); Red Blood Count 3.99 M/mm3 (4.6-6.2); White Blood Count 9.4 K/mm3 (4.4-11.0)
[2025-06-06 06:52] LABS: AST(SGOT) 18 U/L (<=37); Alanine Aminotransfer ALT/SGPT 16 U/L (<=46); Albumin, Serum 3.4 g/dL (3.4-4.8); Alkaline Phosphatase 67 U/L (40-129); Anion Gap 12 (5-15); BUN 22 mg/dL (4-19); BUN/Creat Ratio 25.1 RATIO (10-20); Calcium,Total 9.1 mg/dL (7.6-11.0); Carbon Dioxide 23.2 mmol/L (21.0-32.0); Chloride 101 mmol/L (98-108); Estimated Creatinine Clearance 72.47 ml/min (50-250); Globulin 3.5 g/dL (2.2-4.2); Glucose 182 mg/dL (70-99); Potassium 4.5 mmol/L (3.3-5.1)
[2025-06-06] MEDS: Budesonide Respules 0.5 MG/2 ML AMPUL.NEB. INHALATION ×2 (07:06→19:31)
[2025-06-06] MEDS: Ensure Plus High Protein 120 ML LIQUID PO ×3 (08:14→18:46)
--- NOTE | 2025-06-06 11:42 | CASEMGMT ---
DARNELL MC Assessment Face to Face with patient for initial transition planning/care coordination assessment. DARNELL MC introduced self and role at [facility], pt voices understanding. Pt is A&Ox4 and is resting comfortably in the chair and is calm. Care providers, pharmacy, and demographics verified. Admitting dx: Acute Hypoxia, COPD Exacerbation LACE Strata: 2 PCP: Ana Barrera Specialists: Denies Preferred Pharmacy: [facility] Insurance: AARP MCR ADV Prescription Benefit: Yes LNOK: Kell (W), Keith (Son) Living Arrangements: Pt lives with his in a single story home with 3-4 steps to enter ADLs/IADLs: Pt states that he is indep Transportation: Self, DME: CPAP @ [facility] with no additional o2. Pt is currently requiring additional oxygen and may qualify for home oxygen use. A verbal list of local in-network DME companies were provided to the pt at this time. Pt prefers [employer]. Pt also has a FWW, cane, Manual WC, Shower chair. HHC/SNF: Reports HH and SNF history x 10 years ago but cannot recall the agency or facility Pt?s goal: Home Plan: Home with pt's once medically ready, follow for new oxygen needs. See PT eval. At this time, the pt denies the need for HH, OP Tx, or any other resources. Pt states that he feels safe returning home with his at the time of DC and denies any further questions or concerns. Report given to MS3 DARNELL MC. Liz Rowe RN, CM
[2025-06-06] MEDS: 0.9% Saline Lock 10 ML Syringe IV ×2 (14:30→20:38)
--- NOTE | 2025-06-06 15:51 | CPS ---
Patient's brought in own PAP machine for the night
[2025-06-06] MEDS: PALIPERIDONE 3 MG TAB.ER.24 PO (22:58)
[2025-06-07] VITALS (8 sets, daily range): BP systolic 146–165; BP diastolic 71–82; PULSE 63–88; RESP 16–18; TEMP 36.1–36.8; O2SAT 93–97
[2025-06-07] MEDS: 0.9% Saline Lock 10 ML Syringe IV ×3 (05:01→21:42)
[2025-06-07] MEDS: Budesonide Respules 0.5 MG/2 ML AMPUL.NEB. INHALATION ×2 (08:57→17:26)
[2025-06-07] MEDS: APIXABAN 5 MG TABLET PO ×2 (09:08→21:44)
[2025-06-07] MEDS: Ensure Plus High Protein 120 ML LIQUID PO (09:08)
--- NOTE | 2025-06-07 11:41 | CASEMGMT ---
Pt does not qualify for home oxygen.
--- NOTE | 2025-06-07 12:06 | PCM.DC.SUM ---
Providers Date of Admission: 06/05/25 Date of Discharge: 06/07/25 Primary Care Physician: Dr. Ana Barrera, DO Reason For Visit: ACUTE HYPOXIA, COPD EXACERBATION Diagnosis Discharge Diagnosis (1) UTI (urinary tract infection): Status: Acute Code(s): N39.0 - Urinary tract infection, site not specified (2) COPD with acute bronchitis: Status: Chronic Code(s): J44.0 - Chronic obstructive pulmonary disease with (acute) lower respiratory infection; J20.9 - Acute bronchitis, unspecified Plan Patient is a 80-year-old gentleman who was admitted with shortness of breath. Checks x-ray obtained demonstrated focal interstitial emphysematous lung changes. Admitted to regular nursing floor for subsequent management 1. Acute hypoxia ? Secondary to COPD with acute exacerbation admitted to regular nursing floor management bronchodilator, systemic steroid as well as antibiotics ? Patient hypoxia did improve with treatment of the underlying etiology 2. Acute complicated UTI ? Patient started on ceftriaxone urine culture sent 3. Left wrist swelling ? Imaging studies demonstrated no acute fracture or dislocation. Patient was found to have degenerative joint changes. Plan is to treat symptomatically 4. Anemia ? Secondary to chronic disorder monitoring H&H and transfuse if patient becomes symptomatic or hemoglobin falls below 7 5. Class I obesity with BMI of 32 ?Complicating care, weight loss advised 6. History of previous VTE (DVT and PE ? Patient is on systemic anticoagulation with apixaban continue 7. Paroxysmal atrial fibrillation ? Patient is on flecainide and diltiazem in addition to systemic anticoagulation with apixaban continue 8. Dyslipidemia ?Patient is on statin therapy, continued at home dose 9. Hypertension ? Blood pressure controlled, home medications continued with dose adjustment as needed 10. Obstructive sleep apnea ? Patient is on PAP therapy at night consistent use encouraged 11. Depression with anxiety/PTSD ? Did continue patient home meds 13. Hyperglycemia ? Suspected to be secondary to use of steroid. Ordered hemoglobin A1c 14. DVT prophylaxis ? Patient already on systemic anticoagulation Time spent in the patient's overall evaluation,decision-making process, review of diagnostic data, adjustment of management, discussion with other providers, nursing nursing and ancillary staff involved in patient's care documentation,50 Minutes Medications at Discharge Home Medications flecainide 100 mg tablet 100 mg PO BID heart #60 tabs 03/09/19 rosuvastatin 20 mg tablet 20 mg PO QHS cholesterol 07/14/19 apixaban 5 mg tablet 5 mg PO BID blood thinner 02/29/20 ipratropium 0.5 mg-albuterol 3 mg (2.5 mg base)/3 mL nebulization soln 3 ml inhalation Q4H PRN shortness of breath or wheezing #180 mL 10/22/21 duloxetine 60 mg capsule,delayed release 60 mg PO DAILY mood 06/30/23 buspirone 30 mg tablet 30 mg PO BID mood 11/29/24 diltiazem HCl 240 mg capsule,extended release 24 hr (Cartia XT) 240 mg PO QAM heart 11/29/24 risperidone 0.5 mg tablet 0.5 mg PO QHS 11/29/24 trazodone 100 mg tablet 100 mg PO QHS sleep 11/29/24 tiotropium bromide 2.5 mcg/actuation mist for inhalation (Spiriva Respimat) 2 puff inhalation QDAY sob #3 ea 03/02/25 albuterol sulfate 90 mcg/actuation aerosol inhaler 2 puff inhalation Q6H PRN shortness of breath or wheezing #18 grams 05/28/25 budesonide-formoterol HFA 160 mcg-4.5 mcg/actuation aerosol inhaler (Symbicort) 2 puff inhalation BID sob #1 ea 05/28/25 amoxicillin 875 mg-potassium clavulanate 125 mg tablet 1 tab PO Q12H atb 10 days #20 tabs 06/01/25 ipratropium 0.5 mg-albuterol 3 mg (2.5 mg base)/3 mL nebulization soln 3 ml inhalation Q6H 5 days #90 mL 06/01/25 ipratropium bromide 21 mcg (0.03 %) nasal spray 2 spray intranasal BID-TID PRN postnasal drainage #30 mL 06/01/25 paliperidone 3 mg tablet,extended release 24 hr 3 mg PO QHS mood 06/05/25 Weight / BMI Weight Weight: 88 kg Body Mass Index (BMI) 31.4 ABG / Lab / Microbiology Data 06/06/25 05:23 06/06/25 05:23 Microbiology: Microbiology 06/06/25 05:50 Sputum, Expectorated/Coughed Gram Stain - Final 06/06/25 01:27 Mucosa - Nasopharyngeal Respiratory Panel (PCR) - Final 06/05/25 22:49 Urine, Clean Catch Legionella Antigen - Final 06/05/25 22:49 Urine, Clean Catch Streptococcus pneumoniae Antigen (M - Final 06/05/25 22:00 Mucosa - Nose SARS-CoV-2, Influenza & RSV (PCR) - Final Discharge Plan Admission Admit Date/Time: 06/05/25 23:21 Attending Provider: Keith Miller Primary Care Provider: Ana Barrera Consulting Providers: May Raymond Discharge Orders/Prescriptions Prescriptions: No Action flecainide 100 mg tablet 100 mg PO BID Qty: 60 Patient Comments: TAKE 1 TABLET BY MOUTH TWICE DAILY apixaban 5 mg tablet 5 mg PO BID ipratropium-albuterol 0.5 mg-3 mg(2.5 mg base)/3 mL solution for nebulization 3 ml inhalation Q4H PRN (Reason: shortness of breath or wheezing) Qty: 180 3RF duloxetine 60 mg capsule,delayed release(DR/EC) 60 mg PO DAILY trazodone 100 mg tablet 100 mg PO QHS Rx Instructions: 1-2 as needed at HS diltiazem HCl [Cartia XT] 240 mg capsule,extended release 24hr 240 mg PO QAM buspirone 30 mg tablet 30 mg PO BID risperidone 0.5 mg tablet 0.5 mg PO QHS Spiriva Respimat 2.5 mcg/actuation mist 2 puff INHALATION QDAY Qty: 3 3RF Rx Instructions: administer at approximately the same time(s) each day budesonide-formoterol [Symbicort] 160-4.5 mcg/actuation HFA aerosol inhaler 2 puff inhalation BID Qty: 1 11RF Rx Instructions: administer with spacer, rinse mouth after each use albuterol sulfate 90 mcg/actuation HFA aerosol inhaler 2 puff inhalation Q6H PRN (Reason: shortness of breath or wheezing) Qty: 18 6RF ipratropium-albuterol 0.5 mg-3 mg(2.5 mg base)/3 mL solution for nebulization 3 ml inhalation Q6H 5 Days Qty: 90 0RF ipratropium bromide 21 mcg (0.03 %) spray,non-aerosol 2 spray intranasal BID-TID PRN (Reason: postnasal drainage) Qty: 30 0RF Rx Instructions: administer into each nostril amoxicillin-pot clavulanate 875-125 mg tablet 1 tab PO Q12H 10 Days Qty: 20 0RF rosuvastatin 20 MG tablet 20 mg PO QHS paliperidone 3 mg tablet extended release 24hr 3 mg PO QHS Referrals / Follow Up: Ana Barrera DO [Primary Care Provider, Internal Medicine]
--- NOTE | 2025-06-07 12:08 | PCM.PN.HOSP ---
Reason for Visit Chief Complaint: Dyspnea, cough, wheezing. Subjective Subjective Patient seen oxygen requirement has significantly improved and is currently maintaining adequate saturation on room air. Urine cultures obtained on admission results pending Objective Data Objective Data Vital Signs: Vital Signs Temp Pulse Resp BP Pulse Ox O2 Del Method O2 Flow Rate 98.3 F 73 16 161/82 H 94 Room Air 1 06/07/25 08:49 06/07/25 08:59 06/07/25 08:59 06/07/25 08:49 06/07/25 08:59 06/07/25 08:59 06/06/25 10:28 Oxygen Flow Rate (L/min) 1 Oxygen Delivery Method Room Air Weight: 88 kg Body Mass Index (BMI) 31.4 Intake & Output: Intake and Output for Last 24 Hours 06/05/25 06/06/25 06/07/25 23:59 23:59 23:59 Intake Total 2650 / 3100 450 / 450 Output Total 150 / 150 Balance 2500 / 2950 450 / 450 Lab / Micro Data 06/06/25 05:23 06/06/25 05:23 Micro: Microbiology 06/06/25 05:50 Sputum, Expectorated/Coughed Gram Stain - Final 06/06/25 01:27 Mucosa - Nasopharyngeal Respiratory Panel (PCR) - Final 06/05/25 22:49 Urine, Clean Catch Legionella Antigen - Final 06/05/25 22:49 Urine, Clean Catch Streptococcus pneumoniae Antigen (M - Final 06/05/25 22:00 Mucosa - Nose SARS-CoV-2, Influenza & RSV (PCR) - Final Physical Exam Narrative GENERAL: cooperative HEENT: Atraumatic; normocephalic EYES; Anicteric, Normal Conjunctiva NECK; supple, normal thyroid, RESPIRATORY: Diminished to auscultation, no wheezes CARDIOVASCULAR: Regular S1 S2, GI: soft, normoactive bowel sounds, : No Renal angle tenderness; EXTREMITIES: No edema, no clubbing, MUSCULOSKELETAL: no muscle wasting NEURO: Awake; no lateralizing signs. SKIN: No Rash PSYCH; Flat affect Assessment & Plan Assessment/Plan (1) UTI (urinary tract infection): (2) COPD with acute bronchitis: PLAN: Plan Patient is a 80-year-old gentleman who was admitted with shortness of breath. Checks x-ray obtained demonstrated focal interstitial emphysematous lung changes. Admitted to regular nursing floor for subsequent management 1. Acute hypoxia ? Secondary to COPD with acute exacerbation admitted to regular nursing floor management bronchodilator, systemic steroid as well as antibiotics ? 06/07/2025 patient hypoxia did improve with treatment of the underlying etiology. Currently maintaining adequate oxygen saturation on room air 2. Acute complicated UTI ? Patient started on ceftriaxone urine culture sent ? 06/07/2025; patient remains on ceftriaxone urine cultures pending 3. Left wrist swelling ? Imaging studies demonstrated no acute fracture or dislocation. Patient was found to have degenerative joint changes. Plan is to treat symptomatically 4. Anemia ? Secondary to chronic disorder monitoring H&H and transfuse if patient becomes symptomatic or hemoglobin falls below 7 5. Class I obesity with BMI of 32 ?Complicating care, weight loss advised 6. History of previous VTE (DVT and PE ? Patient is on systemic anticoagulation with apixaban continue 7. Paroxysmal atrial fibrillation ? Patient is on flecainide and diltiazem in addition to systemic anticoagulation with apixaban continue 8. Dyslipidemia ?Patient is on statin therapy, continued at home dose 9. Hypertension ? Blood pressure controlled, home medications continued with dose adjustment as needed 10. Obstructive sleep apnea ? Patient is on PAP therapy at night consistent use encouraged 11. Depression with anxiety/PTSD ? Did continue patient home meds 13. Hyperglycemia ? Suspected to be secondary to use of steroid. Ordered hemoglobin A1c 14. DVT prophylaxis ? Patient already on systemic anticoagulation Time spent in the patient's overall evaluation,decision-making process, review of diagnostic data, adjustment of management, discussion with other providers, nursing nursing and ancillary staff involved in patient's care documentation, 40 Minutes Charges/Coding Visit Charges Inpatient E&M: 91428 Subs Hosp L2
--- NOTE | 2025-06-07 16:20 | RAD_ITS ---
PROCEDURE: CHEST PA AND LATERAL 06/07/2025 REASON FOR EXAM: INCREASED COUGHING AND INSP WHEEZING TECHNIQUE: Procedure Code: RADCXR Modality: DX Procedure: CHEST PA AND LATERAL COMPARISON: 06/06/2025 FINDINGS: LUNGS AND PLEURA: Emphysematous lung changes. Minimal strand-like opacities again seen in the left lung base. No pleural effusion or pneumothorax. HEART AND MEDIASTINUM: The heart size and mediastinal contours are normal. AORTA: Mildly calcified aortic arch. BONES: No acute osseous abnormality. Prior left reverse total shoulder arthroplasty. Suture anchors in the right humeral head. RAD/Chest PA and Lateral IMPRESSION: 1. No significant change from the prior study. 2. Minimal strand-like left basilar opacities, likely atelectasis/scarring wit h infection not excluded. Reading Location: [id number]
[2025-06-07] MEDS: PALIPERIDONE 3 MG TAB.ER.24 PO (21:44)
[2025-06-07] MEDS: Azithromycin 500 MG in 0.9% Normal Saline (250mL Bag) 250 ML 250 MG IV (22:34)
[2025-06-08] VITALS (7 sets, daily range): BP systolic 143–182; BP diastolic 70–84; PULSE 78–88; RESP 16–18; TEMP 36.3–36.5; O2SAT 87–96; BMI 31.4
[2025-06-08] MEDS: 0.9% Saline Lock 10 ML Syringe IV ×2 (06:29→08:57)
--- NOTE | 2025-06-08 08:02 | PCM.PN.HOSP ---
Reason for Visit Chief Complaint: Dyspnea, cough, wheezing. Subjective Subjective Patient breathing significantly improved. Urine cultures came back negative. Plan is for patient to be assessed for possible discharge Objective Data Objective Data Vital Signs: Vital Signs Temp Pulse Resp BP Pulse Ox O2 Del Method O2 Flow Rate 97.4 F L 79 18 157/81 H 96 CPAP 1.5 06/08/25 04:02 06/08/25 04:02 06/08/25 04:02 06/08/25 04:02 06/08/25 04:02 06/08/25 04:08 06/07/25 14:33 Oxygen Flow Rate (L/min) 1.5 Oxygen Delivery Method CPAP Weight: 88.7 kg Body Mass Index (BMI) 31.4 Intake & Output: Intake and Output for Last 24 Hours 06/06/25 06/07/25 06/08/25 23:59 23:59 23:59 Intake Total 2650 / 3100 1300 / 1300 900 / 900 Output Total 150 / 150 Balance 2500 / 2950 1300 / 1300 900 / 900 Lab / Micro Data 06/06/25 05:23 06/06/25 05:23 Micro: Microbiology 06/05/25 22:29 Blood Culture (Wb) - Anticubital Right Blood Culture - Preliminary No growth in 48 hours. 06/05/25 21:53 Blood Culture (Wb) - Anticubital Right Blood Culture - Preliminary No growth in 48 hours. 06/06/25 05:50 Sputum, Expectorated/Coughed Gram Stain - Final 06/06/25 01:27 Mucosa - Nasopharyngeal Respiratory Panel (PCR) - Final 06/05/25 22:49 Urine, Clean Catch Legionella Antigen - Final 06/05/25 22:49 Urine, Clean Catch Streptococcus pneumoniae Antigen (M - Final 06/05/25 22:00 Mucosa - Nose SARS-CoV-2, Influenza & RSV (PCR) - Final Radiography Diagnostic Testing: Radiology Impression Chest X-Ray 06/07/25 16:20 IMPRESSION: 1. No significant change from the prior study. 2. Minimal strand-like left basilar opacities, likely atelectasis/scarring with infection not excluded. Reading Location: [facility] Physical Exam Narrative GENERAL: cooperative HEENT: Atraumatic; normocephalic EYES; Anicteric, Normal Conjunctiva NECK; supple, normal thyroid, RESPIRATORY: Diminished to auscultation, no wheezes CARDIOVASCULAR: Regular S1 S2, GI: soft, normoactive bowel sounds, : No Renal angle tenderness; EXTREMITIES: No edema, no clubbing, MUSCULOSKELETAL: no muscle wasting NEURO: Awake; no lateralizing signs. SKIN: No Rash PSYCH; Flat affect Assessment & Plan Assessment/Plan (1) UTI (urinary tract infection): (2) COPD with acute bronchitis: PLAN: Plan Patient is a 80-year-old gentleman who was admitted with shortness of breath. Checks x-ray obtained demonstrated focal interstitial emphysematous lung changes. Admitted to regular nursing floor for subsequent management 1. Acute hypoxia ? Secondary to COPD with acute exacerbation admitted to regular nursing floor management bronchodilator, systemic steroid as well as antibiotics ? 06/07/2025 patient hypoxia did improve with treatment of the underlying etiology. Currently maintaining adequate oxygen saturation on room air 2. Acute complicated UTI ? Patient started on ceftriaxone urine culture sent ? 06/07/2025; patient remains on ceftriaxone urine cultures pending ? 06/08/2025; urine cultures came back negative patient to be assessed for possible discharge 3. Left wrist swelling ? Imaging studies demonstrated no acute fracture or dislocation. Patient was found to have degenerative joint changes. Plan is to treat symptomatically 4. Anemia ? Secondary to chronic disorder monitoring H&H and transfuse if patient becomes symptomatic or hemoglobin falls below 7 5. Class I obesity with BMI of 32 ?Complicating care, weight loss advised 6. History of previous VTE (DVT and PE ? Patient is on systemic anticoagulation with apixaban continue 7. Paroxysmal atrial fibrillation ? Patient is on flecainide and diltiazem in addition to systemic anticoagulation with apixaban continue 8. Dyslipidemia ?Patient is on statin therapy, continued at home dose 9. Hypertension ? Blood pressure controlled, home medications continued with dose adjustment as needed 10. Obstructive sleep apnea ? Patient is on PAP therapy at night consistent use encouraged 11. Depression with anxiety/PTSD ? Did continue patient home meds 13. Hyperglycemia ? Suspected to be secondary to use of steroid. Ordered hemoglobin A1c 14. DVT prophylaxis ? Patient already on systemic anticoagulation Time spent in the patient's overall evaluation,decision-making process, review of diagnostic data, adjustment of management, discussion with other providers, nursing nursing and ancillary staff involved in patient's care documentation, 35 minutes Charges/Coding Visit Charges Inpatient E&M: 72110 Subs Hosp L2
[2025-06-08] MEDS: APIXABAN 5 MG TABLET PO (08:52)
--- NOTE | 2025-06-08 09:32 | CASEMGMT ---
DARNELL CM notified Pt will DC today. DARNELL MC noted Pt had home qualifying O2 yesterday and did not qualify, asked RN to do another home qualifying O2 today to confirm Pt not requiring O2 before DC.
--- NOTE | 2025-06-08 10:22 | PCM.DC.SUM ---
Providers Date of Admission: 06/05/25 Date of Discharge: 06/08/25 Primary Care Physician: Dr. Ana Barrera, DO Reason For Visit: ACUTE HYPOXIA, COPD EXACERBATION Diagnosis Discharge Diagnosis (1) UTI (urinary tract infection): Status: Acute Code(s): N39.0 - Urinary tract infection, site not specified (2) COPD with acute bronchitis: Status: Chronic Code(s): J44.0 - Chronic obstructive pulmonary disease with (acute) lower respiratory infection; J20.9 - Acute bronchitis, unspecified Plan Patient is a 80-year-old gentleman who was admitted with shortness of breath. Checks x-ray obtained demonstrated focal interstitial emphysematous lung changes. Admitted to regular nursing floor for subsequent management 1. Acute hypoxia ? Secondary to COPD with acute exacerbation admitted to regular nursing floor management bronchodilator, systemic steroid as well as antibiotics ? 06/07/2025 patient hypoxia did improve with treatment of the underlying etiology. Currently maintaining adequate oxygen saturation on room air 2. Acute complicated UTI ? Patient started on ceftriaxone urine culture sent ? 06/07/2025; patient remains on ceftriaxone urine cultures pending ? 06/08/2025; urine cultures came back negative patient to be assessed for possible discharge 3. Left wrist swelling ? Imaging studies demonstrated no acute fracture or dislocation. Patient was found to have degenerative joint changes. Plan is to treat symptomatically 4. Anemia ? Secondary to chronic disorder monitoring H&H and transfuse if patient becomes symptomatic or hemoglobin falls below 7 5. Class I obesity with BMI of 32 ?Complicating care, weight loss advised 6. History of previous VTE (DVT and PE ? Patient is on systemic anticoagulation with apixaban continue 7. Paroxysmal atrial fibrillation ? Patient is on flecainide and diltiazem in addition to systemic anticoagulation with apixaban continue 8. Dyslipidemia ?Patient is on statin therapy, continued at home dose 9. Hypertension ? Blood pressure controlled, home medications continued with dose adjustment as needed 10. Obstructive sleep apnea ? Patient is on PAP therapy at night consistent use encouraged 11. Depression with anxiety/PTSD ? Did continue patient home meds 13. Hyperglycemia ? Suspected to be secondary to use of steroid. Ordered hemoglobin A1c 14. DVT prophylaxis ? Patient already on systemic anticoagulation Time spent in the patient's overall evaluation,decision-making process, review of diagnostic data, adjustment of management, discussion with other providers, nursing nursing and ancillary staff involved in patient's care documentation, 35 minutes Medications at Discharge Home Medications flecainide 100 mg tablet 100 mg PO BID heart #60 tabs 03/09/19 rosuvastatin 20 mg tablet 20 mg PO QHS cholesterol 07/14/19 apixaban 5 mg tablet 5 mg PO BID blood thinner 02/29/20 ipratropium 0.5 mg-albuterol 3 mg (2.5 mg base)/3 mL nebulization soln 3 ml inhalation Q4H PRN shortness of breath or wheezing #180 mL 10/22/21 duloxetine 60 mg capsule,delayed release 60 mg PO DAILY mood 06/30/23 buspirone 30 mg tablet 30 mg PO BID mood 11/29/24 diltiazem HCl 240 mg capsule,extended release 24 hr (Cartia XT) 240 mg PO QAM heart 11/29/24 risperidone 0.5 mg tablet 0.5 mg PO QHS 11/29/24 trazodone 100 mg tablet 100 mg PO QHS sleep 11/29/24 tiotropium bromide 2.5 mcg/actuation mist for inhalation (Spiriva Respimat) 2 puff inhalation QDAY sob #3 ea 03/02/25 albuterol sulfate 90 mcg/actuation aerosol inhaler 2 puff inhalation Q6H PRN shortness of breath or wheezing #18 grams 05/28/25 budesonide-formoterol HFA 160 mcg-4.5 mcg/actuation aerosol inhaler (Symbicort) 2 puff inhalation BID sob #1 ea 05/28/25 ipratropium 0.5 mg-albuterol 3 mg (2.5 mg base)/3 mL nebulization soln 3 ml inhalation Q6H 5 days #90 mL 06/01/25 ipratropium bromide 21 mcg (0.03 %) nasal spray 2 spray intranasal BID-TID PRN postnasal drainage #30 mL 06/01/25 paliperidone 3 mg tablet,extended release 24 hr 3 mg PO QHS mood 06/05/25 doxycycline hyclate 100 mg capsule 100 mg PO BID #14 caps 06/08/25 guaifenesin 100 mg/5 mL oral liquid 100 mg (5 mL) PO Q4H PRN PRN Cough #500 mL 06/08/25 prednisone 20 mg tablet 20 mg PO BID #14 tabs 06/08/25 Physical Exam Narrative GENERAL: cooperative HEENT: Atraumatic; normocephalic EYES; Anicteric, Normal Conjunctiva NECK; supple, normal thyroid, RESPIRATORY: Diminished to auscultation, no wheezes CARDIOVASCULAR: Regular S1 S2, GI: soft, normoactive bowel sounds, : No Renal angle tenderness; EXTREMITIES: No edema, no clubbing, MUSCULOSKELETAL: no muscle wasting NEURO: Awake; no lateralizing signs. SKIN: No Rash PSYCH; Flat affect Weight / BMI Weight Weight: 88.7 kg Body Mass Index (BMI) 31.4 ABG / Lab / Microbiology Data 06/06/25 05:23 06/06/25 05:23 Microbiology: Microbiology 06/06/25 05:50 Sputum, Expectorated/Coughed Gram Stain - Final 06/06/25 05:50 Sputum, Expectorated/Coughed Respiratory Culture - Final 06/05/25 22:49 Urine, Clean Catch Urine Culture - Final Culture exhibits no growth. 06/05/25 22:29 Blood Culture (Wb) - Anticubital Right Blood Culture - Preliminary No growth in 48 hours. 06/05/25 21:53 Blood Culture (Wb) - Anticubital Right Blood Culture - Preliminary No growth in 48 hours. 06/06/25 01:27 Mucosa - Nasopharyngeal Respiratory Panel (PCR) - Final 06/05/25 22:49 Urine, Clean Catch Legionella Antigen - Final 06/05/25 22:49 Urine, Clean Catch Streptococcus pneumoniae Antigen (M - Final 06/05/25 22:00 Mucosa - Nose SARS-CoV-2, Influenza & RSV (PCR) - Final Radiography Diagnostic Testing: Radiology Impression Chest X-Ray 06/07/25 16:20 IMPRESSION: 1. No significant change from the prior study. 2. Minimal strand-like left basilar opacities, likely atelectasis/scarring with infection not excluded. Reading Location: [id number] Instructions Discharge Activity: Return to Normal Activity Call your doctor if you observe: Fever of 101 or Higher, Shortness of breath, Fainting spells and Chest pain DC O2, CPAP, BIPAP Needs Home O2 Discharge instructions: No Meaningful Use Info Meaningful Use Meaningful Use Diagnoses (Choose all that apply): None applicable Discharge Plan Admission Admit Date/Time: 06/05/25 23:21 Attending Provider: Keith Miller Primary Care Provider: Ana Barrera Consulting Providers: May Raymond Discharge Orders/Prescriptions Prescriptions: New guaifenesin 100 mg/5 mL Liquid 100 mg PO Q4H PRN PRN (Reason: Cough) Qty: 500 0RF doxycycline hyclate 100 mg capsule 100 mg PO BID Qty: 14 0RF prednisone 20 mg tablet 20 mg PO BID Qty: 14 0RF Continued flecainide 100 mg tablet 100 mg PO BID Qty: 60 Patient Comments: TAKE 1 TABLET BY MOUTH TWICE DAILY apixaban 5 mg tablet 5 mg PO BID ipratropium-albuterol 0.5 mg-3 mg(2.5 mg base)/3 mL solution for nebulization 3 ml inhalation Q4H PRN (Reason: shortness of breath or wheezing) Qty: 180 3RF duloxetine 60 mg capsule,delayed release(DR/EC) 60 mg PO DAILY trazodone 100 mg tablet 100 mg PO QHS Rx Instructions: 1-2 as needed at HS diltiazem HCl [Cartia XT] 240 mg capsule,extended release 24hr 240 mg PO QAM buspirone 30 mg tablet 30 mg PO BID risperidone 0.5 mg tablet 0.5 mg PO QHS Spiriva Respimat 2.5 mcg/actuation mist 2 puff INHALATION QDAY Qty: 3 3RF Rx Instructions: administer at approximately the same time(s) each day budesonide-formoterol [Symbicort] 160-4.5 mcg/actuation HFA aerosol inhaler 2 puff inhalation BID Qty: 1 11RF Rx Instructions: administer with spacer, rinse mouth after each use albuterol sulfate 90 mcg/actuation HFA aerosol inhaler 2 puff inhalation Q6H PRN (Reason: shortness of breath or wheezing) Qty: 18 6RF ipratropium-albuterol 0.5 mg-3 mg(2.5 mg base)/3 mL solution for nebulization 3 ml inhalation Q6H 5 Days Qty: 90 0RF ipratropium bromide 21 mcg (0.03 %) spray,non-aerosol 2 spray intranasal BID-TID PRN (Reason: postnasal drainage) Qty: 30 0RF Rx Instructions: administer into each nostril rosuvastatin 20 MG tablet 20 mg PO QHS paliperidone 3 mg tablet extended release 24hr 3 mg PO QHS Discontinued amoxicillin-pot clavulanate 875-125 mg tablet 1 tab PO Q12H 10 Days Qty: 20 0RF Referrals / Follow Up: Ana Barrera DO [Primary Care Provider, Internal Medicine] - Within 2 Weeks Disposition Disposition (needs filled in before D/C Order can be placed): Home, Self Care Charges/Coding Visit Charges Inpatient E&M: 16967 Disch Hosp >30min
[2025-06-08] MEDS: Budesonide Respules 0.5 MG/2 ML AMPUL.NEB. INHALATION (10:38)
--- NOTE | 2025-06-08 12:04 | CASEMGMT ---
RN CM notified by Nurse, Pt did not qualify for O2. Reviewed DC orders, no needs identified at this time.
== END 2025-06-08 13:21 | disposition home or self-care (01) | DRG 191 ==
LOC: ED 23:18 → MS3 23:48
PROVIDERS: Admitting Provider Family Medicine; Emergency Provider Emergency Medicine; PCP Internal Medicine; Visit Provider Internal Medicine
DX: J44.1 Chronic obstructive pulmonary disease with (acute) exacerbation (principal); N39.0 Urinary tract infection, site not specified; D63.8 Anemia in other chronic diseases classified elsewhere; Z66 Do not resuscitate; Z51.5 Encounter for palliative care; G25.81 Restless legs syndrome; E66.811 Obesity, class 1; I48.0 Paroxysmal atrial fibrillation; J44.0 Chronic obstructive pulmonary disease with (acute) lower respiratory infection; I12.9 Hypertensive chronic kidney disease with stage 1 through stage 4 chronic kidney disease, or unspecified chronic kidney disease; E78.5 Hyperlipidemia, unspecified; N18.2 Chronic kidney disease, stage 2 (mild); M10.9 Gout, unspecified; K21.9 Gastro-esophageal reflux disease without esophagitis; G47.33 Obstructive sleep apnea (adult) (pediatric); F41.8 Other specified anxiety disorders; M25.432 Effusion, left wrist; J20.9 Acute bronchitis, unspecified; Z86.718 Personal history of other venous thrombosis and embolism; Z79.51 Long term (current) use of inhaled steroids; F43.10 Post-traumatic stress disorder, unspecified; Z86.711 Personal history of pulmonary embolism; Z87.891 Personal history of nicotine dependence; Z68.32 Body mass index [BMI] 32.0-32.9, adult; R73.9 Hyperglycemia, unspecified; Z79.01 Long term (current) use of anticoagulants
CPT/HCPCS: 36415; 71045; 71046; 73130; 80053; 81001; 83605; 83880; 84145; 84484; 84550; 85025; 85610; 85730; 87040; 87070; 87086; 87205; 87449; 87631; 87633; 93005; 94640; 94668; 97116; 97162; 97166; 97530; 97802; 99285; A4216